=== PATIENT | female | born 1970 | race Caucasian/White ===

== ENCOUNTER → 2018-05-29 16:36 | Outpatient (CLI) | payer SELFPAY | LOC: MTRAD 16:37 | PROVIDERS: Family Provider Family Medicine; PCP Family Medicine; Visit Provider Family Medicine | DX: M54.16 Radiculopathy, lumbar region (principal) | CPT/HCPCS: 72110 ==

== ENCOUNTER → 2019-06-18 12:30 | Outpatient (CLI) | payer BC, SELFPAY ==
[2018-04-07 13:06] VITALS: BMI 37.0
[2019-06-18 14:39] LABS: Hemoglobin A1c 4.9 % (4.2-6.3)
[2019-06-18 14:59] LABS: Anion Gap 5 (5-15); BUN 18 mg/dL (7-18); BUN/Creat Ratio 24.4 RATIO (10-20); Calcium,Total 8.7 mg/dL (8.5-10.1); Chloride 106 mmol/L (98-107); Creatinine, Serum 0.74 mg/dL (0.55-1.02); EST Glomerular Filtration Rate 89 mL/min (>60); Est Glom Filt Rate - Afr Amer 108 mL/min (>60); Glucose 69 mg/dL (74-106); Potassium 3.8 mmol/L (3.5-5.1); Sodium Level 140 mmol/L (136-145)
== END ==
PROVIDERS: Family Provider Family Medicine; PCP Family Medicine; Referring Provider Family Medicine; Visit Provider Family Medicine
DX: Z00.00 Encounter for general adult medical examination without abnormal findings (principal); E16.2 Hypoglycemia, unspecified
CPT/HCPCS: 36415; 80048; 83036

== ENCOUNTER → 2019-07-08 16:40 | Outpatient (CLI) | payer BC, SELFPAY ==
[2019-07-08 14:20] VITALS: BMI 37.0
[2019-07-15 12:51] LABS: HPV APTIMA, High Risk Negative (Negative)
== END ==
PROVIDERS: Family Provider Family Medicine; PCP Family Medicine; Referring Provider Nurse Practitioner Women's Health; Visit Provider Nurse Practitioner Women's Health
DX: Z12.4 Encounter for screening for malignant neoplasm of cervix (principal)
CPT/HCPCS: 87624; 88175; G0145

== ENCOUNTER → 2019-07-09 14:22 | Outpatient (CLI) | payer BC, SELFPAY ==
[2019-07-08 14:20] VITALS: BMI 37.0
--- NOTE | 2019-07-09 14:30 | RAD_ITS ---
STUDY: X-RAY - RIGHT HIP REASON FOR EXAM: Female, 48 years old. Pain. TECHNIQUE: 2 views of the hip. COMPARISON: None. FINDINGS: Normal femoral head, neck, intertrochanteric region and visualized proximal femur. Normal acetabulum. Normal hip joint. Normal visualized superior and inferior pubic rami and ischial tuberosities. Normal soft tissues. RAD/HIP, UNI W/ Pelvis 2-3 Views IMPRESSION: Normal x-ray examination of the right hip. Electronically Signed: Geoff Brown DO at 18:21 EDT Tel [phone], Service support ,
== END ==
LOC: MTRAD 14:23
PROVIDERS: Family Provider Family Medicine; PCP Family Medicine; Referring Provider Family Medicine; Visit Provider Family Medicine
DX: M25.551 Pain in right hip (principal)
CPT/HCPCS: 73502

== ENCOUNTER → 2019-08-11 12:43 | Outpatient (CLI) | payer BC, SELFPAY ==
[2019-07-08 14:20] VITALS: BMI 37.0
--- NOTE | 2019-08-11 12:47 | BI_ITS ---
MAMMOGRAPHY - BILATERAL SCREENING REASON FOR EXAM: Female, 48 years old. Routine annual screening examination. PERTINENT HISTORY: Non-contributory. TECHNIQUE: Digital bilateral breast jerry (3D mammographic acquisition) in the CC and MLO projections. 2-D mediolateral oblique (MLO) and craniocaudad (CC) views of both breasts were obtained. CAD: Full Field Digital Mammography with Computer Added Detection was performed. COMPARISON: Comparison is made with prior study dated August 24, 2016 and August 19, 2015. FINDINGS: Breast Composition: The breasts are heterogeneously dense, which may obscure small masses. There are no dominant masses or suspicious calcifications. No other significant abnormalities are identified. There has been no significant change since the prior study. BI/SCREEN MAMM (CAD) W/JERRY BILAT IMPRESSION: Stable bilateral screening mammogram. Yearly follow-up mammogram recommended. (A) ASSESSMENT CATEGORY: BIRADS Category 1: Negative. A letter regarding these results will be sent to the patient by the facility within 30 days. Approximately 10% of breast cancers are not detected by mammography. A normal mammogram should not delay biopsy of a clinically suspicious abnormality. [id number] Electronically Signed: Cas Santos, at 15:25 EDT , Service support ,
== END ==
PROVIDERS: Family Provider Family Medicine; PCP Family Medicine; Referring Provider Nurse Practitioner Women's Health; Visit Provider Nurse Practitioner Women's Health
DX: Z12.31 Encounter for screening mammogram for malignant neoplasm of breast (principal)
CPT/HCPCS: 77063; 77067

== ENCOUNTER → 2019-10-02 11:49 | Outpatient (CLI) | payer BC, SELFPAY ==
[2019-07-08 14:20] VITALS: BMI 37.0
[2019-10-02 15:46] LABS: Insulin 11.9 mU/L (2.6-37.6)
[2019-10-02 15:52] LABS: T4 Free Direct 1.02 ng/dL (0.76-1.46); Thyroid Stim Hormone (TSH) 0.94 uIU/mL (0.358-3.74)
== END ==
LOC: BFHLAB 11:50
PROVIDERS: Family Provider Family Medicine; PCP Family Medicine; Visit Provider Family Medicine
DX: E16.2 Hypoglycemia, unspecified (principal)
CPT/HCPCS: 36415; 82533; 83525; 84439; 84443

== ENCOUNTER → 2020-03-01 13:10 | Outpatient (CLI) | payer BC, SELFPAY ==
[2019-07-08 14:20] VITALS: BMI 37.0
[2020-03-01 14:53] LABS: Cholesterol 184 mg/dL (200); Glucose 82 mg/dL (74-106); High Density Lipoprotein 60 mg/dL; Triglycerides 41 mg/dL; Very Low Density Lipoprotein 8 mg/dL (5-40)
== END ==
PROVIDERS: PCP Family Medicine; Visit Provider Family Medicine
DX: Z00.00 Encounter for general adult medical examination without abnormal findings (principal)
CPT/HCPCS: 36415; 80061; 82947

== ENCOUNTER → 2020-09-26 15:28 | Outpatient (CLI) | payer BC, SELFPAY ==
[2020-09-21 13:14] VITALS: BMI 37.3
[2020-09-26 17:25] LABS: Anion Gap 5 (5-15); BUN 20 mg/dL (7-18); BUN/Creat Ratio 25.8 RATIO (10-20); Calcium,Total 8.7 mg/dL (8.5-10.1); Chloride 108 mmol/L (98-107); Creatinine, Serum 0.77 mg/dL (0.55-1.02); EST Glomerular Filtration Rate 84 mL/min (>60); Est Glom Filt Rate - Afr Amer 102 mL/min (>60); Glucose 92 mg/dL (74-106); Potassium 3.7 mmol/L (3.5-5.1); Sodium Level 139 mmol/L (136-145)
== END ==
PROVIDERS: PCP Family Medicine; Visit Provider Family Medicine
DX: I10 Essential (primary) hypertension (principal); Z01.83 Encounter for blood typing
CPT/HCPCS: 36415; 80048; 86900; 86901

== ENCOUNTER → 2020-12-19 14:59 | Outpatient (CLI) | payer BC, SELFPAY ==
[2020-09-21 13:14] VITALS: BMI 37.3
[2020-12-19 17:21] LABS: Absolute Lymphocyte Count 1.29 X10^3/uL (0.83-4.51); Absolute Neutrophil Count 3.9 X10^3/uL (2.0-7.7); Basophil# 0.02 X10^3/uL; Basophil% 0.3 % (0-1); Eosinophil# 0.13 X10^3/uL; Eosinophils% 2.2 % (0-5); Hematocrit 38.7 % (37-47); Hemoglobin 12.1 g/dL (12.0-15.0); Lymphocyte # 1.29 X10^3/ul (4.0); Lymphocyte % 22.2 % (19-41); Mean Corp Hgb Conc 31.3 g/dL (32-36); Mean Corpuscular Hgb 26.7 pg (27.0-32.0); Mean Corpuscular Volume 85.4 fL (81-99); Mean Platelet Vol. 10.8 fl (6.2-12.0); Monocyte% 8.6 % (0-10); NRBC Flagged by Analyzer 0 % (0-5); Neutrophil # 3.85 X10^3/uL (2.7-7.7); Neutrophil % 66.4 % (47-70); Platelet Count 338 K/mm3 (150-450); RBC Distribution Width CV 16.2 % (11.6-14.6); RBC Distribution Width SD 50.7 fl (35.1-43.9); Red Blood Count 4.53 M/mm3 (4.2-5.4); White Blood Count 5.8 K/mm3 (4.4-11.0)
[2020-12-19 17:28] LABS: Hemoglobin A1c 5.3 % (3.8-5.6)
[2020-12-19 17:33] LABS: Thyroid Stim Hormone (TSH) 1.23 uIU/mL (0.358-3.74)
[2020-12-19 17:41] LABS: Vitamin B12 857 pg/mL (211-911); Vitamin D,25 Hydroxy 16.6 ng/mL
== END ==
PROVIDERS: PCP Family Medicine; Visit Provider Family Medicine
DX: R53.83 Other fatigue (principal); R73.03 Prediabetes
CPT/HCPCS: 36415; 82306; 82607; 83036; 84443; 85025

== ENCOUNTER → 2020-12-30 17:02 | Outpatient (CLI) | payer OTHER, SELFPAY ==
[2020-12-30 16:43] VITALS: BMI 38.3
--- NOTE | 2020-12-30 17:03 | RAD_ITS ---
STUDY: X-RAY - RIGHT KNEE REASON FOR EXAM: Female, 50 years old. pt fell today, pain TECHNIQUE: 2 view(s) of the knee. COMPARISON: None. FINDINGS: Normal visualized distal femur. Normal visualized proximal tibia and fibula. Normal proximal tibiofibular articulation. There is no demonstrated fracture. Normal medial femorotibial compartment. Normal lateral femorotibial compartment. Normal patellofemoral articulation. There is no demonstrated joint effusion. The soft tissue structures are unremarkable. RAD/Knee 1 or 2 Views IMPRESSION: Normal x-ray examination of the knee. Electronically Signed: Baldev Osuna MD at 18:08 EDT , Service support ,
--- NOTE | 2020-12-30 17:03 | RAD_ITS ---
STUDY: X-RAY - RIGHT ELBOW REASON FOR EXAM: Female, 50 years old. pt fell today, pain TECHNIQUE: 3 view(s) of the elbow. COMPARISON: None. FINDINGS: Normal visualized humerus, radius and ulna. Normal radiocapitellar and ulnotrochlear articulations. The soft tissue structures are unremarkable. There is no demonstrated fracture. RAD/Elbow min 3 Views IMPRESSION: Normal x-ray examination of the elbow. Electronically Signed: Baldev Osuna MD at 18:02 EDT , Service support ,
== END ==
PROVIDERS: PCP Family Medicine; Referring Provider Physician Assistant Medical; Visit Provider Physician Assistant Medical
DX: M25.521 Pain in right elbow (principal); W19.XXXA Unspecified fall, initial encounter
CPT/HCPCS: 73080; 73560

== ENCOUNTER → 2021-02-02 15:07 | Outpatient (CLI) | payer BC, SELFPAY ==
[2019-07-08 14:20] VITALS: BMI 37.0
[2020-12-30 16:43] VITALS: BMI 38.3
--- NOTE | 2021-02-02 15:09 | BI_ITS ---
MAMMOGRAPHY - BILATERAL SCREENING REASON FOR EXAM: Female, 50 years old. Routine annual screening examination. PERTINENT HISTORY: Non-contributory. TECHNIQUE: Digital bilateral breast jerry (3D mammographic acquisition) in the CC and MLO projections. 2-D mediolateral oblique (MLO) and craniocaudad (CC) views of both breasts were obtained. CAD: Full Field Digital Mammography with Computer Added Detection was performed. COMPARISON: Comparison is made with prior study dated 08/11/2019 and 08/24/2016. FINDINGS: Breast Composition: The breasts are heterogeneously dense, which may obscure small masses. There are no dominant masses or suspicious calcifications. No other significant abnormalities are identified. There has been no significant change since the prior study. BI/SCRN MAMM (CAD)W/JERRY BILAT IMPRESSION: Stable bilateral screening mammogram. Yearly follow-up mammogram recommended. (A) ASSESSMENT CATEGORY: BIRADS Category 1: Negative. A letter regarding these results will be sent to the patient by the facility within 30 days. Approximately 10% of breast cancers are not detected by mammography. A normal mammogram should not delay biopsy of a clinically suspicious abnormality. [id number] Electronically Signed: Cas Santos MD at 15:52 EDT , Service support ,
== END ==
PROVIDERS: PCP Family Medicine; Referring Provider Nurse Practitioner Women's Health; Visit Provider Nurse Practitioner Women's Health
DX: Z12.31 Encounter for screening mammogram for malignant neoplasm of breast (principal)
CPT/HCPCS: 77063; 77067

== ENCOUNTER 2021-11-30 10:29 | Outpatient (CLI) | payer MEDICAID, SELFPAY ==
[2021-11-30 12:14] LABS: Absolute Lymphocyte Count 1.44 X10^3/uL (0.83-4.51); Absolute Neutrophil Count 3.6 X10^3/uL (2.0-7.7); Basophil# 0.02 X10^3/uL; Basophil% 0.4 % (0-1); Eosinophil# 0.14 X10^3/uL; Eosinophils% 2.5 % (0-5); Hematocrit 40.3 % (37-47); Hemoglobin 12.5 g/dL (12.0-15.0); Lymphocyte # 1.44 X10^3/ul (0.83-4.51); Lymphocyte % 25.8 % (19-41); Mean Corpuscular Hgb 26.5 pg (27.0-32.0); Mean Corpuscular Volume 85.4 fL (81-99); Monocyte# 0.33 X10^3/uL; Monocyte% 5.9 % (0-10); NRBC Flagged by Analyzer 0 % (0-5); Neutrophil # 3.63 X10^3/uL (2.7-7.7); Platelet Count 303 K/mm3 (150-450); RBC Distribution Width CV 15.8 % (11.6-14.6); RBC Distribution Width SD 49.1 fl (35.1-43.9); Red Blood Count 4.72 M/mm3 (4.2-5.4); White Blood Count 5.6 K/mm3 (4.4-11.0)
[2021-11-30 12:30] LABS: Vitamin D,25 Hydroxy 37.6 ng/mL
[2021-11-30 12:44] LABS: ALB/GLOB Ratio 0.8 RATIO (0.9-2.4); AST(SGOT) 19 U/L (15-37); Alanine Aminotransfer ALT/SGPT 21 U/L (13-56); Albumin, Serum 3.7 g/dL (3.2-5.0); Alkaline Phosphatase 75 U/L (45-117); Anion Gap 5 (5-15); BUN 22 mg/dL (7-18); BUN/Creat Ratio 29.5 RATIO (10-20); Calcium,Total 8.8 mg/dL (8.5-10.1); Chloride 106 mmol/L (98-107); Cholesterol 173 mg/dL (200); Creatinine, Serum 0.75 mg/dL (0.55-1.02); EST Glomerular Filtration Rate 87 mL/min (>60); Est Glom Filt Rate - Afr Amer 105 mL/min (>60); Globulin 4.5 g/dL (2.2-4.2); Glucose 83 mg/dL (74-106); High Density Lipoprotein 65 mg/dL; Potassium 3.7 mmol/L (3.5-5.1); Protein, Total 8.2 g/dL (6.4-8.2); Sodium Level 136 mmol/L (136-145); Thyroid Stim Hormone (TSH) 0.84 uIU/mL (0.358-3.74); Triglycerides 37 mg/dL; Very Low Density Lipoprotein 7 mg/dL (5-40)
[2021-11-30 13:14] LABS: Hemoglobin A1c 5.3 % (3.8-5.6)
== END 2021-11-30 23:59 | disposition home or self-care (01) ==
LOC: MTLAB 10:33
PROVIDERS: PCP Family Medicine; Referring Provider Family Medicine; Visit Provider Family Medicine
DX: R53.83 Other fatigue (principal); E16.2 Hypoglycemia, unspecified; E55.9 Vitamin D deficiency, unspecified
CPT/HCPCS: 36415; 80053; 80061; 82306; 82533; 83036; 84443; 85025

== ENCOUNTER → 2022-02-01 | Outpatient (CLI) | payer MEDICAID, SELFPAY ==
[2022-02-01 15:00] LABS: Estradiol 18.3 pg/mL; Follicle Stimulating Hormone 82.7 mIU/mL
== END | disposition home or self-care (01) ==
LOC: PAVLAB 14:21
PROVIDERS: PCP Family Medicine; Referring Provider Nurse Practitioner Women's Health; Visit Provider Nurse Practitioner Women's Health
DX: N92.6 Irregular menstruation, unspecified (principal)
CPT/HCPCS: 36415; 82670; 83001

== ENCOUNTER → 2022-02-05 | Outpatient (CLI) | payer MEDICAID, SELFPAY ==
--- NOTE | 2022-02-05 14:10 | BI_ITS ---
MAMMOGRAPHY - BILATERAL SCREENING 3-D TOMOSYNTHESIS REASON FOR EXAM: Female, 51 years old. screening for breast cancer PERTINENT HISTORY: No significant family history. TECHNIQUE: 2-D mammograms and 3-D Tomosynthesis of the breast (s) were performed. CAD was performed. COMPARISON: 02/02/2021 FINDINGS: The breast composition is heterogeneously dense that can obscure small breast masses. Scattered benign calcifications are seen. No dense spiculated masses or suspicious microcalcifications are identified. No architectural distortion is identified. There is no skin thickening or retraction. There has been no significant change since the prior study. BI/SCRN MAMM (CAD)W/JERRY BILAT IMPRESSION: No mammographic signs of malignancy. Routine yearly mammograms recommended. ASSESSMENT CATEGORY: BIRADS Category 1: Negative. A letter regarding these results will be sent to the patient by the facility within 30 days. FOLLOW UP RECOMMENDATION: Yearly follow up mammogram recommended. (A) Approximately 10% of breast cancers are not detected by mammography. A normal mammogram should not delay biopsy of a clinically suspicious abnormality. Electronically Signed: Basilio Durbin MD at 15:20 EDT ,
== END | disposition home or self-care (01) ==
LOC: OPBI 14:10
PROVIDERS: PCP Family Medicine; Visit Provider Nurse Practitioner Women's Health
DX: Z12.31 Encounter for screening mammogram for malignant neoplasm of breast (principal)
CPT/HCPCS: 77063; 77067

== ENCOUNTER → 2022-05-22 | Outpatient (CLI) | payer MEDICAID, SELFPAY ==
[2022-05-22 18:12] LABS: Absolute Lymphocyte Count 1.51 X10^3/uL (0.83-4.51); Absolute Neutrophil Count 4.4 X10^3/uL (2.0-7.7); Basophil# 0.03 X10^3/uL; Basophil% 0.5 % (0-1); Eosinophil# 0.16 X10^3/uL; Eosinophils% 2.4 % (0-5); Hematocrit 39.2 % (37-47); Hemoglobin 12.6 g/dL (12.0-15.0); Lymphocyte # 1.51 X10^3/ul (0.83-4.51); Lymphocyte % 22.9 % (19-41); Mean Corp Hgb Conc 32.1 g/dL (32-36); Mean Corpuscular Hgb 25.9 pg (27.0-32.0); Mean Corpuscular Volume 80.5 fL (81-99); Mean Platelet Vol. 10.9 fl (6.2-12.0); Monocyte# 0.44 X10^3/uL; Monocyte% 6.7 % (0-10); NRBC Flagged by Analyzer 0 % (0-5); Neutrophil # 4.44 X10^3/uL (2.7-7.7); Neutrophil % 67.2 % (47-70); Platelet Count 312 K/mm3 (150-450); RBC Distribution Width CV 17.1 % (11.6-14.6); RBC Distribution Width SD 50.2 fl (35.1-43.9); Red Blood Count 4.87 M/mm3 (4.2-5.4); White Blood Count 6.6 K/mm3 (4.4-11.0)
[2022-05-22 18:54] LABS: ALB/GLOB Ratio 0.8 RATIO (0.9-2.4); AST(SGOT) 22 U/L (15-37); Alanine Aminotransfer ALT/SGPT 24 U/L (13-56); Albumin, Serum 3.7 g/dL (3.2-5.0); Alkaline Phosphatase 87 U/L (45-117); Anion Gap 8 (5-15); BUN 19 mg/dL (7-18); BUN/Creat Ratio 23.5 RATIO (10-20); Chloride 105 mmol/L (98-107); Creatinine, Serum 0.81 mg/dL (0.55-1.02); EST Glomerular Filtration Rate 79 mL/min (>60); Est Glom Filt Rate - Afr Amer 96 mL/min (>60); Globulin 4.6 g/dL (2.2-4.2); Glucose 90 mg/dL (74-106); Protein, Total 8.3 g/dL (6.4-8.2); Sodium Level 137 mmol/L (136-145); Thyroid Stim Hormone (TSH) 0.97 uIU/mL (0.358-3.74)
[2022-05-22 18:58] LABS: Vitamin D,25 Hydroxy 41.8 ng/mL
== END | disposition home or self-care (01) ==
LOC: MTLAB 16:43
PROVIDERS: PCP Family Medicine; Referring Provider Family Medicine; Visit Provider Family Medicine
DX: R53.83 Other fatigue (principal); R60.9 Edema, unspecified; E55.9 Vitamin D deficiency, unspecified
CPT/HCPCS: 36415; 80053; 82306; 84443; 85025

== ENCOUNTER → 2022-10-02 | Outpatient (CLI) | payer MEDICAID, SELFPAY | END | disposition home or self-care (01) | LOC: LABSPEC 10:57 | PROVIDERS: PCP Family Medicine; Visit Provider Family Medicine | DX: J06.9 Acute upper respiratory infection, unspecified (principal) | CPT/HCPCS: 87426 ==

== ENCOUNTER → 2023-01-01 | Outpatient (CLI) | payer MEDICAID, SELFPAY ==
[2023-01-01 18:11] LABS: AST(SGOT) 22 U/L (15-37); Alanine Aminotransfer ALT/SGPT 30 U/L (13-56); Albumin, Serum 4.1 g/dL (3.2-5.0); Alkaline Phosphatase 77 U/L (45-117); Anion Gap 7 (5-15); BUN 17 mg/dL (7-18); BUN/Creat Ratio 22.2 RATIO (10-20); Calcium,Total 9.3 mg/dL (8.5-10.1); Chloride 108 mmol/L (98-107); Cholesterol 160 mg/dL (200); Creatinine, Serum 0.76 mg/dL (0.55-1.02); EST Glomerular Filtration Rate 84 mL/min (>60); Est Glom Filt Rate - Afr Amer 102 mL/min (>60); Globulin 4.2 g/dL (2.2-4.2); Glucose 97 mg/dL (74-106); High Density Lipoprotein 79 mg/dL; Potassium 3.3 mmol/L (3.5-5.1); Protein, Total 8.3 g/dL (6.4-8.2); Sodium Level 141 mmol/L (136-145); Triglycerides 65 mg/dL; Very Low Density Lipoprotein 13 mg/dL (5-40)
== END | disposition home or self-care (01) ==
LOC: BFHLAB 14:45
PROVIDERS: PCP Family Medicine; Referring Provider Family Medicine; Visit Provider Family Medicine
DX: R17 Unspecified jaundice (principal); E78.5 Hyperlipidemia, unspecified
CPT/HCPCS: 36415; 80053; 80061

== ENCOUNTER → 2023-05-14 | Outpatient (CLI) | payer MEDICAID, SELFPAY | END | disposition home or self-care (01) | PROVIDERS: PCP Family Medicine; Referring Provider Family Medicine; Visit Provider Family Medicine | DX: Z20.7 Contact with and (suspected) exposure to pediculosis, acariasis and other infestations (principal); R21 Rash and other nonspecific skin eruption ==

== ENCOUNTER → 2023-05-16 | Outpatient (CLI) | payer MEDICAID, SELFPAY | END | disposition home or self-care (01) | PROVIDERS: PCP Family Medicine; Referring Provider Family Medicine; Visit Provider Family Medicine | DX: Z20.7 Contact with and (suspected) exposure to pediculosis, acariasis and other infestations (principal); R21 Rash and other nonspecific skin eruption ==

== ENCOUNTER → 2023-07-26 | Outpatient (CLI) | payer MEDICAID, SELFPAY ==
--- NOTE | 2023-07-26 16:04 | RAD_ITS ---
HISTORY: NECK PAIN. TECHNIQUE: XR Spine Cervical 4 or 5 Views. COMPARISON: 06/24/2015. FINDINGS: VERTEBRAE: Vertebral body heights maintained. Chronic C7 spinous process fracture. ALIGNMENT: 2 mm anterolisthesis of C7-T1. Reversal of the cervical lordosis. INTERVERTEBRAL DISCS: Progression of degenerative endplate changes with intervertebral disc space narrowing and osteophytes of C3-4, C4-5, C5-6, and C6-7. Foraminal narrowing multiple levels. SOFT TISSUES: No significant prevertebral soft tissue swelling. RAD/Cerv Spine 4 or 5 Views IMPRESSION: No acute fracture or dislocation identified in the cervical spine. Progression multilevel degenerative disc disease with mild degenerative anterolisthesis of C7-T1. Old C7 spinous process fracture. Electronically Signed: Elle Bhakta MD at 13:04 EDT ,
--- NOTE | 2023-07-26 16:04 | RAD_ITS ---
HISTORY: SHOULDER PAIN. TECHNIQUE: XR Shoulder Min 2 Views. COMPARISON: None. FINDINGS: BONES : No acute fracture identified. Mineralization unremarkable. JOINTS: No dislocation. Mild acromioclavicular degenerative change with small subacromial spur or ossicle. SOFT TISSUES: Right lung apex clear. RAD/Shoulder min 2 Views IMPRESSION: No acute fracture or dislocation identified in the right shoulder. Electronically Signed: Elle Bhakta MD at 13:03 EDT ,
== END | disposition home or self-care (01) ==
PROVIDERS: PCP Family Medicine; Referring Provider Nurse Practitioner Family; Visit Provider Nurse Practitioner Family
DX: M54.2 Cervicalgia (principal); M25.511 Pain in right shoulder
CPT/HCPCS: 72050; 73030

== ENCOUNTER → 2023-08-09 | Outpatient (CLI) | payer OTHER, MEDICAID, SELFPAY ==
--- NOTE | 2023-08-09 14:17 | BI_ITS ---
MAMMOGRAPHY - BILATERAL SCREENING REASON FOR EXAM: Female, 52 years old. Routine annual screening examination. PERTINENT HISTORY: Non-contributory. TECHNIQUE: Digital bilateral breast jerry (3D mammographic acquisition) in the CC and MLO projections. 2-D mediolateral oblique (MLO) and craniocaudad (CC) views of both breasts were obtained. CAD: Full Field Digital Mammography with Computer Added Detection was performed. COMPARISON: Comparison is made with prior examination February 05, 2022 and February 02, 2021. FINDINGS: Breast Composition: There are scattered areas of fibroglandular density. There are no dominant masses or suspicious calcifications. No other significant abnormalities are identified. There has been no significant change since the prior study. BI/SCRN MAMM (CAD)W/JERRY BILAT IMPRESSION: Stable bilateral screening mammogram. Yearly follow-up mammogram recommended. (A) ASSESSMENT CATEGORY: BIRADS Category 2: Benign. A letter regarding these results will be sent to the patient by the facility within 30 days. Approximately 10% of breast cancers are not detected by mammography. A normal mammogram should not delay biopsy of a clinically suspicious abnormality. [id number] Electronically Signed: Cas Santos MD at 15:17 EDT ,
== END | disposition home or self-care (01) ==
LOC: OPBI 14:15
PROVIDERS: PCP Family Medicine; Referring Provider Nurse Practitioner Family; Visit Provider Nurse Practitioner Family
DX: Z12.31 Encounter for screening mammogram for malignant neoplasm of breast (principal)
CPT/HCPCS: 77063; 77067

== ENCOUNTER → 2024-04-06 | Outpatient (CLI) | payer OTHER, SELFPAY ==
[2024-04-06 18:08] LABS: Absolute Lymphocyte Count 1.29 X10^3/uL (0.83-4.51); Absolute Neutrophil Count 1.6 X10^3/uL (2.0-7.7); Basophil# 0.02 X10^3/uL; Basophil% 0.5 % (0-1); Eosinophil# 0.29 X10^3/uL; Eosinophils% 7.8 % (0-5); Hematocrit 38.3 % (37-47); Hemoglobin 11.9 g/dL (12.0-15.0); Lymphocyte # 1.29 X10^3/ul (0.83-4.51); Lymphocyte % 34.9 % (19-41); Mean Corp Hgb Conc 31.1 g/dL (32-36); Mean Corpuscular Hgb 26.2 pg (27.0-32.0); Mean Corpuscular Volume 84.2 fL (81-99); Mean Platelet Vol. 10.7 fl (6.2-12.0); Monocyte# 0.47 X10^3/uL; Monocyte% 12.7 % (0-10); NRBC Flagged by Analyzer 0 % (0-5); Neutrophil # 1.63 X10^3/uL (2.7-7.7); Neutrophil % 44.1 % (47-70); Platelet Count 225 K/mm3 (150-450); RBC Distribution Width SD 49.7 fl (35.1-43.9); Red Blood Count 4.55 M/mm3 (4.2-5.4); White Blood Count 3.7 K/mm3 (4.4-11.0)
[2024-04-06 18:23] LABS: Hemoglobin A1c 5.3 % (3.8-5.6)
[2024-04-06 18:51] LABS: ALB/GLOB Ratio 0.9 RATIO (0.9-2.4); AST(SGOT) 25 U/L (15-37); Alanine Aminotransfer ALT/SGPT 25 U/L (13-56); Albumin, Serum 3.7 g/dL (3.2-5.0); Alkaline Phosphatase 76 U/L (45-117); Anion Gap 8 (5-15); BUN 24 mg/dL (7-18); Calcium,Total 9.1 mg/dL (8.5-10.1); Chloride 108 mmol/L (98-107); Cholesterol 174 mg/dL (200); Creatinine, Serum 0.69 mg/dL (0.55-1.02); EST Glomerular Filtration Rate 95 mL/min (>60); Est Glom Filt Rate - Afr Amer 115 mL/min (>60); Glucose 87 mg/dL (74-106); High Density Lipoprotein 76 mg/dL; Potassium 3.8 mmol/L (3.5-5.1); Protein, Total 7.7 g/dL (6.4-8.2); Sodium Level 139 mmol/L (136-145); Thyroid Stim Hormone (TSH) 0.61 uIU/mL (0.358-3.74); Triglycerides 58 mg/dL; Very Low Density Lipoprotein 12 mg/dL (5-40)
== END | disposition home or self-care (01) ==
LOC: BFHLAB 14:12
PROVIDERS: PCP Family Medicine; Referring Provider Family Medicine; Visit Provider Family Medicine
DX: Z00.00 Encounter for general adult medical examination without abnormal findings (principal); I10 Essential (primary) hypertension; R73.01 Impaired fasting glucose
CPT/HCPCS: 36415; 80053; 80061; 83036; 84443; 85025

== ENCOUNTER → 2025-04-08 | Outpatient (CLI) | payer OTHER, SELFPAY ==
[2025-04-08 17:45] LABS: Absolute Lymphocyte Count 1.37 X10^3/uL (0.83-4.51); Absolute Neutrophil Count 3.1 X10^3/uL (2.0-7.7); Basophil# 0.03 X10^3/uL; Basophil% 0.6 % (0-1); Eosinophil# 0.24 X10^3/uL; Eosinophils% 4.6 % (0-5); Hematocrit 37.5 % (37-47); Hemoglobin 11.9 g/dL (12.0-15.0); Lymphocyte # 1.37 X10^3/ul (0.83-4.51); Lymphocyte % 26.4 % (19-41); Mean Corp Hgb Conc 31.7 g/dL (32-36); Mean Corpuscular Hgb 26.1 pg (27.0-32.0); Mean Corpuscular Volume 82.2 fL (81-99); Mean Platelet Vol. 10.9 fl (6.2-12.0); Monocyte# 0.41 X10^3/uL; Monocyte% 7.9 % (0-10); NRBC Flagged by Analyzer 0 % (0-5); Neutrophil # 3.13 X10^3/uL (2.7-7.7); Neutrophil % 60.3 % (47-70); Platelet Count 284 K/mm3 (150-450); RBC Distribution Width CV 16.3 % (11.6-14.6); RBC Distribution Width SD 49.1 fl (35.1-43.9); Red Blood Count 4.56 M/mm3 (4.2-5.4); White Blood Count 5.2 K/mm3 (4.4-11.0)
[2025-04-08 18:37] LABS: ALB/GLOB Ratio 1.3 RATIO (0.9-2.4); AST(SGOT) 23 U/L (<=31); Alanine Aminotransfer ALT/SGPT 14 U/L (<=34); Albumin, Serum 4.2 g/dL (3.5-5.0); Alkaline Phosphatase 78 U/L (35-104); Anion Gap 12 (5-15); BUN 24 mg/dL (4-19); BUN/Creat Ratio 27.3 RATIO (10-20); Calcium,Total 9.4 mg/dL (7.6-11.0); Carbon Dioxide 21.7 mmol/L (21.0-32.0); Chloride 106 mmol/L (98-108); Cholesterol 185 mg/dL (<=200); Creatinine, Serum 0.87 mg/dL (0.70-1.20); EST Glomerular Filtration Rate 79 (>60); Globulin 3.1 g/dL (2.2-4.2); Glucose 102 mg/dL (70-99); High Density Lipoprotein 79 mg/dL; Low Density Lipoprotein Calc. 91 mg/dL; Potassium 4.4 mmol/L (3.3-5.1); Protein, Total 7.3 g/dL (5.9-8.4); Sodium Level 140 mmol/L (133-145); Thyroid Stim Hormone (TSH) 0.549 uIU/mL (0.300-4.200); Total Bilirubin 0.36 mg/dL (0.00-1.30); Triglycerides 74 mg/dL; Very Low Density Lipoprotein 15 mg/dL (5-40); Vitamin D,25 Hydroxy 43.2 ng/mL (30-100); cholesterol:hdl ratio screen 2.35
[2025-04-09 14:04] LABS: Hemoglobin A1c 5.7 % (<=5.6)
== END | disposition home or self-care (01) ==
LOC: BFHLAB 15:52
PROVIDERS: PCP Family Medicine; Visit Provider Family Medicine
DX: Z00.00 Encounter for general adult medical examination without abnormal findings (principal); E55.9 Vitamin D deficiency, unspecified; R73.01 Impaired fasting glucose
CPT/HCPCS: 36415; 80053; 80061; 82306; 83036; 84443; 85025

== ENCOUNTER → 2025-06-18 | Outpatient (CLI) | payer OTHER, SELFPAY ==
--- NOTE | 2025-06-18 15:55 | BI_ITS ---
EXAM: SCRN MAMM (CAD)W/JERRY BILAT DATE: 06/18/2025 CLINICAL HISTORY: F, Age 54 y/o , SCREENING TECHNIQUE: Procedure Code: [id number] Modality: MG Procedure: SCRN MAMM (CAD)W/JERRY BILAT COMPARISON: Prior exam(s) dated 08/09/2023 and 02/05/2022. FINDINGS: TISSUE DENSITY: There are scattered areas of fibroglandular density. Bilateral Breast Mammographic Findings: No significant masses, calcifications or other abnormalities are identified. Benign vascular calcifications are seen in both breast. BI/SCRN MAMM (CAD)W/JERRY BILAT IMPRESSION: Benign screening mammogram OVERALL FINAL ASSESSMENT BI-RADS 2: BENIGN RECOMMENDATION: Routine annual follow-up in 1 Year A letter with findings and recommendations will be mailed to the patient. Reading Location: [id number]
--- OUTSIDE RECORDS SUMMARY | 2025-06-18 20:49 | XMS RPT_ITS | CCD ---
Author Organization [facility] Care Team Providers Care Property Maintenance Technician Name Role Phone Dr. Donald Aguilar Primary Care Provider Dr. Donald Aguilar Referring Provider RYAN Cochran Attending Provider Perla ROQUE, JOHN Mirza Attending Provider Dr. Donald Aguilar Primary Care Provider [phone] Dr[address] Donald Aguilar Referring Provider RYAN Cochran Attending Provider RYAN Mcgovern Attending Provider [phone] Donald Aguilar DO Primary Care Provider Donald Aguilar DO A Primary Care Provider DONALD AGUILAR A Primary Care Unavailable THERESA MORAN Referring Unavailable DONALD AGUILAR A Primary Care Unavailable MARCELA ARAGON Referring Unavailable DONALD AGUILAR A Primary Care Unavailable DONALD AGUILAR A Primary Care Unavailable Dr. Donald Aguilar DO Primary Care Provider Dr. Donald Aguilar DO Attending Provider Donald Aguilar Attending Unavailable Donald Aguilar Primary Care Unavailable Donald Aguilar Attending Unavailable Donald Aguilar Referring Unavailable Donald Aguilar Primary Care Unavailable Allergies Allergy Classification Reported Allergen(s) Allergy Type Date of Onset Reaction(s) Facility (7 sources) DULoxetine Drug Allergy 2 [facility] (15 sources) Sulfonamides (Antibiotic); Translations: [SULFA (SULFONAMIDE ANTIBIOTICS)] Allergy to substance 4 Hives [facility] (1 source) DULoxetine Drug Allergy 3 [facility] Repository Medications Current Medications Medication Drug Class(es) Dates Sig (Normalized) Sig (Original) acetaminophen 325 mg oral capsule (7 sources) Start: 01-10-2022 take 1 capsule by mouth once as needed Acetaminophen (Tylenol) 325 mg capsule Active 325 mg PO ONCE as needed January 10, 2022 12:00am [id number] actuat albuterol 0.09 mg/actuat metered dose inhaler (15 sources) beta2-Adrenergic Agonist Start: 12-07-2024 take 2 puff(s) by inhalation every four hours as needed for wheezing albuterol HFA (PROVENTIL HFA, VENTOLIN HFA) 90 mcg/actuation inhaler Inhale 2 Puffs as instructed every 4 hours as needed for wheezing/shortness of breath. 12/07/2024 Active Start: 04-19-2015 End: 07-08-2019 take 1 puff(s) by inhalation every four hours as needed Albuterol Sulfate Discontinued 1 PUFF INHALATION EVERY 4 HOURS NEEDED April 19, 2015 1:33pm July 08, 2019 2:07pm Start: 04-19-2015 End: 07-08-2019 Albuterol Sulfate 1 INHALER inhaler Discontinued 1 NMA INHALATION EVERY 4 HOURS NEEDED as needed for Shortness Of Breath April 19, 2015 12:00am July 08, 2019 2:07pm Start: 04-19-2015 End: 07-08-2019 take 1 puff(s) by inhalation every four hours as needed Albuterol Sulfate Discontinued 1 PUFF INHALATION EVERY 4 HOURS NEEDED April 19, 2015 12:00am July 08, 2019 2:07pm ALBUTEROL SULFAT E (VENTOLIN HFA INHALATION) Inhale as instructed. Active ALBUTEROL SULFAT E (VENTOLIN HFA INHALATION) Inhale as instructed. 0 Active Comment on above: Inhale as instructed . albuterol-budesonide HFA (AIRSUPRA) 90-80 mcg/actuation inhaler (3 sources) Start: 12-16-2024 End: 01-15-2025 albuterol-budesonide HFA (AIRSUPRA) 90-80 mcg/actuation inhaler Indications: Acute cough Inhale 2 Puffs as instructed every 6 hours as needed for wheezing/shortness of breath. Do not take more than 12 inhalations in a 24 hour period. 1 Each 12/16/2024 01/15/2025 Active betamethasone 0.5 mg/ml / clotrimazole 10 mg/ml topical cream (14 sources) Azole Antifungal, Corticosteroid Start: 09-21-2020 End: 01-17-2022 Clotrimazole-Betametha sone 1-0.05 % cream Active 1 NMA TOPICAL TWICE A DAY 45 14 1 January 17, 2022 2:55pm Start: 09-21-2020 End: 01-17-2022 Clotrimazole-Betamethasone A ctive 1 APPLIC TOPICAL TWICE A DAY 45 14 January 17, 2022 2:55pm cholecalciferol 0.05 mg oral capsule (7 sources) Vitamin D Start: 01-10-2022 take 1 capsule by mouth once daily Cholecalciferol (Vitamin D3) 50 mcg (2,000 unit) capsule Active 50 ug PO DAILY January 10, 2022 12:00am cyclobenzaprine hydrochloride 5 mg oral tablet (9 sources) Muscle Relaxant Start: 09-23-2017 take 1 tablet by mouth twice daily Cyclobenzaprine 5 MG tablet Active 5 mg PO TWICE A DAY September 23, 2017 1:00am End: 07-20-2023 take 1 tablet by mouth every eight hours as needed cyclobenzaprine (FLEXERIL) 5 mg tablet Take 5 mg by mouth three times daily as needed. 0 07/20/2023 Discontinued Comment on above: Take 5 mg by mouth t hree times daily as needed. doxycycline hyclate 100 mg oral capsule (1 source) Tetracycline-class Drug Start : 09-03 take 1 capsule by mouth every twelve hours Doxycycline Hyclate 100 mg capsule Active 100 mg PO Q12H 14 0 September 03, 2023 1:00am famotidine 20 mg oral tablet (1 source) Histamine-2 Receptor Antagonist Start : 05-13 End: 05-23 take 1 tablet by mouth twice daily famotidine (PEPCID) 20 mg tablet Take 1 tablet by mouth twice daily for 10 days. 20 tablet 0 05/13/2023 05/23/2023 Active Comment on above: Take 1 tablet by craig twice daily for 10 days. 120 actuat fluticasone propionate 0.115 mg/actuat / salmeterol 0.021 mg/actuat metered dose inhaler (6 sources) Corticosteroid, beta2-Adrenergic Agonist Start : 02-12 take 1 puff(s) by inhalation twice daily ADVAIR HFA 115-21 mcg/actuation inhaler Inhale 1 Puff as instructed twice daily. 02/12/2023 Active Comment on above: Inhale 1 Puff as ins tructed twice daily. levocetirizine dihydrochloride 5 mg oral tablet (13 sources) Histamine-1 Receptor Antagonist Start : 09-23 take 1 tablet by mouth once daily Levocetirizine 5 MG tablet Active 5 mg PO DAILY September 23, 2017 1:00am Comment on above: Take 5 mg by mouth. melatonin 3 mg oral capsule (7 sources) Start : 09-21 take 1 capsule by mouth at bedtime as needed Melatonin 3 mg capsule Active 3 mg PO BEDTIME as needed September 21, 2020 1:00am methylPREDNISolone (1 source) Corticosteroid Start : 01-08 End: 01-14 methylPREDNISolone (MEDROL, PIRECE,) 4 mg Dose-Pack Follow dosing instructions, take with food. 21 tablet 01/08/2025 01/14/2025 Active norethindrone 0.35 mg oral tablet (20 sources) Start : 12-15 take 1 tablet by mouth once daily Norethindrone (Contraceptive) Active 0 .ROUTE .COMPLEX 84 December 15, 2021 7:30am Take 1 tablet by mouth once daily Start: 07-08-2019 End: 12-15-2021 take 1 tablet by mouth once daily Norethindrone (Contraceptive) (Denise) 0.35 mg tablet Discontinued 0.35 mg PO daily 84 July 04, 2021 7:26am December 15, 2021 7:30am Temple 0-Qsg-Ahf-Fish Oil (Fish Oil) 60-90-500 mg capsule (7 sources) Start: 01-10-2022 take 1 capsule by mouth once daily Temple 0-Ohl-Gae-Fish Oil (Fish Oil) 60-90-500 mg capsule Active 1 CAP PO DAILY January 10, 2022 11:08am Start: 01-10-2022 Temple 3-Dha-Ep a-Fish Oil (Fish Oil) 60-90-500 mg capsule Active 1 NMA PO DAILY January 10, 2022 12:00am Start: 01-10-2022 take 1 capsule by mo [facility] once daily Temple 1-Xly-Fkl-Fish Oil (Fish Oil) 60-90-500 mg capsule Active 1 CAP PO DAILY January 10, 2022 12:00am omeprazole 20 mg delayed release oral capsule (15 sources) Proton Pump Inhibitor Start: 01-01-2025 take 1 capsule by mouth once daily omeprazole (PRILOSEC) 20 mg capsule Take 1 capsule by mouth once daily. 01/01/2025 Active Start: 09-23-2017 Omeprazole 20 MG capsule,delayed release(DR/EC) Active 1 {tbl} PO DAILY September 23, 2017 1:00am Start: 09-23-2017 take 1 tablet by [facility] once daily Omeprazole Active 1 TABLET PO DAILY September 23, 2017 1:00am OMEPRAZOLE ORAL Take by mouth. Active OMEPRAZOLE ORAL Take by mouth. 0 Active Comment on above: Take by mouth. phentermine hydrochloride 37.5 mg oral tablet (5 sources) Sympathomimetic Amine Anorectic Start: 07-05-20 take 1 tablet by mouth once daily in the morning Phentermine HCl 37.5 mg tablet TAKE 1 TABLET BY MOUTH ONCE DAILY IN THE MORNING 07/05/2023 Active Comment on above: TAKE 1 TABLET BY [facility] ONCE DAILY IN THE MORNING predniSONE 10 mg oral tablet (1 source) Start: 07-20-20 End: 07-26-20 take 4 tablets by mouth once daily, then take 2 tablets by mouth once daily, then take 1 tablet by mouth once daily predniSONE (DELTASONE) 10 mg tablet Indications: Acute pain of right shoulder , DDD (degenerative disc disease), cervical Take 4 tablets by mouth once daily for 2 days, THEN 2 tablets once daily for 2 days, THEN 1 tablet once daily for 2 days. Take with food.. 14 tablet 0 07/20/2023 07/26/2023 Active Comment on above: Take 4 tablets by [facility] once daily for 2 days, THEN 2 tablets once daily for 2 days, THEN 1 tablet once daily for 2 days. Take with food.. verapamil hydrochloride 80 mg oral tablet (20 sources) Calcium Channel Josefina Start: 11-25-19 take 1 tablet by mouth every twelve hours verapamil 80 mg tablet Take 1 tablet by mouth every 12 hours. 11/25/2024 Active Start: 12-30-2020 take 1 tablet by craig th once daily Verapamil 80 mg tablet Active 80 mg PO DAILY December 30, 2020 12:00am Start: 09-23-2017 End: 12-30-2020 take 1 capsule by mouth once daily Verapamil 120 MG capsule,ext rel. pellets 24 hr Discontinued 120 mg PO DAILY September 23, 2017 1:00am December 30, 2020 4:45pm take 1 tablet by craig th once daily at bedtime verapamil SR (CALAN SR, ISOPTIN SR) 120 mg CR tablet Take 120 mg by mouth daily at bedtime. Active Comment on above: Take 120 mg by mouth daily at bedtime. Completed/Discontinued Medications Medication Drug Class(es) Dates Sig (Normalized) Sig (Original) acetaminophen 325 mg / oxyCODONE hydrochloride 7.5 mg oral tablet (14 sources) Opioid Agonist Start: 12-30-2020 End: 01-10-2022 Oxycodone-Acetamino phen 7.5-325 mg tablet Discontinued 1 {tbl} PO Q8H as needed for pain 0 December 30, 2020 12:00am January 10, 2022 11:08am Start: 12-30-2020 End: 01-10-2022 take 1 tablet by mouth every eight hours Oxycodone-Acetaminophen Discontinued 1 TABLET PO Q8H December 30, 2020 12:00am January 10, 2022 11:08am Start: 04-26-2015 End: 09-21-2020 Oxycodone-Acetaminophen 1 TA BLET tablet Discontinued 1 - 2 {tbl} PO 4 TIMES DAILY NEEDED as needed for Pain April 26, 2015 8:43am September 21, 2020 2:31pm Start: 04-26-2015 End: 09-21-2020 take 1 tablet by mouth four times daily as needed Oxycodone-Acetaminophen Discontinued 1 - 2 TABLET PO 4 TIMES DAILY NEEDED April 26, 2015 8:43am September 21, 2020 2:31pm Amitriptyline (2 sources) Tricyclic Antidepressant End: 07-20-2023 AMITRIPTYLINE HCL (AMITRIPTYLINE ORAL) Take by mouth. 0 07/20/2023 Discontinued AMITRIPTYLINE HC L (AMITRIPTYLINE ORAL) Take by mouth. 0 Active Comment on above: Take by mouth. ciclesonide 0.037 mg/actuat metered dose nasal spray (9 sources) Start: 04-19-2015 End: 07-08-2019 Ciclesonide 6.1 GM HFA aerosol inhaler Discontinued 6.1 g NS DAILY April 19, 2015 12:00am July 08, 2019 2:07pm End: 07-20-2023 ciclesonide (ZETONNA) 37 mcg /actuation HFAA Use in each nostril. 0 07/20/2023 Discontinued Comment on above: Use in each nostril. COMPOUNDED PRESCRIPTION (2 sources) Start: 04-05-2017 End: 07-20-2023 COMPOUNDED PRESCRIPTION Power Steps, full length original. 1 Device 0 04/05/2017 07/20/2023 Discontinued Start: 04-05-2017 COMPOUNDED PRE SCRIPTION Power Steps, full length original. 1 Device 0 04/05/2017 Active Comment on above: Power Steps, full le ngth original. Norgestimate-Ethinyl Estradiol (20 sources) Progestin, Estrogen Start: 07-06-2019 End: 07-08-2019 Norgestimate-Ethinyl Estradiol (Sprintec (28)) 0.25-35 mg-mcg tablet Discontinued 1 {tbl} PO daily 28 0 July 06, 2019 2:47pm July 08, 2019 2:20pm Start: 07-06-2019 End: 07-08-2019 take 1 tablet by mouth once daily Norgestimate-Ethinyl Estradiol (Sprintec (28)) 0.25-35 mg-mcg tablet Discontinued 1 TABLET PO daily July 06, 2019 2:47pm July 08, 2019 2:20pm Start: 04-13-2019 End: 07-06-2019 Norgestimate-Ethinyl Estradi ol (Sprintec (28)) 0.25-35 mg-mcg tablet Discontinued 1 {tbl} PO daily 84 0 April 13, 2019 11:23am July 06, 2019 2:47pm Start: 04-13-2019 End: 07-06-2019 take 1 tablet by mouth once daily Norgestimate-Ethinyl Estradiol (Sprintec (28)) 0.25-35 mg-mcg tablet Discontinued 1 TABLET PO daily 84 April 13, 2019 11:23am July 06, 2019 2:47pm Start: 04-07-2018 End: 04-13-2019 take 1 tablet by mouth once daily Norgestimate-Ethinyl Estradiol (Sprintec (28)) 0.25-35 mg-mcg tablet Discontinued 1 TABLET PO daily April 07, 2018 1:57pm April 13, 2019 11:24am Start: 04-07-2018 End: 04-13-2019 Norgestimate-Ethinyl Estradi ol (Sprintec (28)) 0.25-35 mg-mcg tablet Discontinued 1 {tbl} PO daily 10 10April 07, 2018 12:00am April 13, 2019 11:24am Start: 04-07-2018 End: 04-13-2019 take 1 tablet by mouth once daily Norgestimate-Ethinyl Estradiol (Sprintec (28)) 0.25-35 mg-mcg tablet Discontinued 1 TABLET PO daily April 07, 2018 12:00am April 13, 2019 11:24am fluconazole 150 mg oral tablet (7 sources) Azole Antifungal Start: 09-21-2020 End: 12-30-2020 Fluconazole 150 mg tablet Discontinued 150 mg PO .COMPLEX 2 0 September 21, 2020 1:00am December 30, 2020 4:47pm 150 mg PO take one po now and repeat in 3 days 120 actuat formoterol fumarate 0.005 mg/actuat / mometasone furoate 0.2 mg/actuat metered dose inhaler (9 sources) Corticosteroid, beta2-Adrenergic Agonist Start: 04-19-2015 End: 07-08-2019 Mometasone-Formoterol 8.8 GM HFA aerosol inhaler Discontinued 8.8 g IH DAILY April 19, 2015 12:00am July 08, 2019 2:08pm End: 07-20-2023 take 2 puff(s) by inhalation twice daily mometasone-formoterol (DULERA) 100-5 mcg/actuation inhaler Inhale 2 Puffs as instructed twice daily. 0 07/20/2023 Discontinued Comment on above: Inhale 2 Puffs as in structed twice daily. ibuprofen 200 mg oral capsule (7 sources) Nonsteroidal Anti-inflammatory Drug Start: 2019 End: 2021 take 1 capsule by mouth every six hours as needed Ibuprofen 200 mg capsule Discontinued 200 mg PO EVERY 6 HOURS as needed September 21, 2020 1:00am January 10, 2022 11:07am medroxyPROGESTERone acetate 5 mg oral tablet (14 sources) Progestin Start: 2017 End: 2017 take 1 tablet by mouth twice daily Medroxyprogesterone 5 mg tablet Discontinued 5 mg PO .COMPLEX 45 0 February 03, 2018 11:23am April 07, 2018 1:07pm 5 mg PO 1 tab tid until bleeding stops X 24 hours then 1 tab bid meloxicam (2 sources) Nonsteroidal Anti-inflammatory Drug End: 2022 MELOXICAM (MOBIC ORAL) Take by mouth. 0 07/20/2023 Discontinued MELOXICAM (MOBIC ORAL) Take by mouth. 0 Active Comment on above: Take by mouth. 24 hr metoprolol succinate 50 mg extended release oral tablet (2 sources) beta-Adrenergic Josefina End: 07-20-2023 take 1 tablet by mouth once daily, then take 1 tablet by mouth every twenty-four hours metoprolol succinate XL, long acting, (TOPROL XL) 50 mg 24 hr tablet Take 50 mg by mouth once daily. 0 07/20/2023 Discontinued Comment on above: Take 50 mg by mouth once daily. OXYCODONE HCL/ACETAMINOPHEN (PERCOCET ORAL) (2 sources) End: 07-20-2023 OXYCODONE HCL/ACETAMINOPHEN (PERCOCET ORAL) Take by mouth. 0 07/20/2023 Discontinued OXYCODONE HCL/AC ETAMINOPHEN (PERCOCET ORAL) Take by mouth. 0 Active Comment on above: Take by mouth. pravastatin sodium 20 mg oral tablet (2 sources) HMG-CoA Reductase Inhibitor Start: 04-08-20 End: 07-20-20 take 1 tablet by mouth once pravastatin (PRAVACHOL) 20 mg tablet Take 1 tablet by mouth every afternoon. 0 04/08/2023 07/20/2023 Discontinued Comment on above: Take 1 tablet by craig th every afternoon. tranexamic acid 650 mg oral tablet (2 sources) Antifibrinolytic Agent End: 07-20-20 Tranexamic Acid 650 mg tab Take by mouth. 0 07/20/2023 Discontinued Comment on above: Take by mouth. valACYclovir 500 mg oral tablet (18 sources) Herpesvirus Nucleoside Analog DNA Polymerase Inhibitor, Herpes Simplex Virus Nucleoside Analog DNA Polymerase Inhibitor, Herpes Zoster Virus Nucleoside Analog DNA Polymerase Inhibitor Start: 10-11-20 16 End: 07-20-20 23 take 1 tablet by mouth twice daily Valacyclovir (Valtrex) 500 mg tablet Discontinued 500 mg PO TWICE A DAY 60 12 April 10, 2018 11:59pm July 08, 2019 2:08pm Start: 10-11-2016 End: 07-20-2023 take 1 tablet by mouth once daily valACYclovir (VALTREX) 500 mg tablet Take 1 tablet by mouth once daily. 30 tablet 12 10/11/2016 07/20/2023 Discontinued Comment on above: Take 1 tablet by craig th twice daily. Take 1 tablet by craig th once daily. Problems Active Problems Problem Classification Problem Date Documented Date Episodic/Chronic Anxiety disorders (9 sources) Anxiety; Translations: [Generalized anxiety disorder] Chronic Menstrual disorders (9 sources) Irregular periods; Translations: [Irregular menstruation, unspecified] Chronic Other female genital disorders (6 sources) Abnormal uterine bleeding; Translations: [Abnormal uterine and vaginal bleeding, unspecified] Onset: 02-25-2017 02-25-2017 Chronic Other lower respiratory disease (2 sources) Cough; Translations: [Acute cough] 12-16-2024 Episodic Other non-traumatic joint disorders (1 source) Pain in right shoulder; Translations: [Pain in joint, shoulder region] 07-20-2023 Episodic Other screening for suspected conditions (not mental disorders or infectious disease) (1 source) Encounter for screening mammogram for malignant neoplasm of breast; Translations: [Encounter for screening mammogram for malignant neoplasm of breast] Onset: 06-11-2025 Episodic Other skin disorders (1 source) Eruption; Translations: [Rash and other nonspecific skin eruption] 05-13-2023 Episodic Residual codes; unclassified (7 sources) Past history of procedure; Translations: [Personal history of other medical treatment] 11-07-2018 Episodic Comment on above: 02/25/17 Spondylosis; intervertebral disc disorders; other back problems (1 source) Degeneration of cervical intervertebral disc; Translations: [Other cervical disc degeneration, unspecified cervical region] 07-20-2023 Chronic Spondylosis; intervertebral disc disorders; other back problems (4 sources) Acute back pain with sciatica; Translations: [Lumbago with sciatica, left side] 01-08-2025 Episodic Superficial injury; contusion (7 sources) Contusion of elbow; Translations: [Contusion of right elbow, initial encounter] 01-06-2021 Episodic Unclassified (7 sources) Contusion of right knee, initial encounter 01-06-2021 Unclassified (1 source) Acute cough; Translations: [Acute cough] Onset: 12-16-2024 Unclassified (1 source) Cellulitis and abscess of finger, unspecified 09-04-2023 Past or Other Problems Problem Classification Problem Date Documented Da te Episodic/Chronic Unclassified (5 sources) wrist surgery 05-04-2022 Results Test Name Value Interpretation Reference Range Facility Hemoglobin A1con 04-09-2025 HbA1c (Bld) [Mass fraction] 5.7 % Normal <=5.6 [facility] Comment on above: Order Comment: SANDIP Garduno ADD ON A1C FROM 04/08/25 [id number] Result Comment: Norm al < 5.7 % Prediabetic 5.7 - 6.4 % Diabetic >or= 6.5 % Please note range changes. Performed By: #### L 500.4100, L501.9985, L500.4050, L501.9520, L506.1001, L100.0100 #### [facility] [address] [place], [place], [id number] Hemoglobin A1c percentageOrd ered By: Donald Aguilar on 04-09-2025 HbA1c (Bld) [Mass fraction] 5.7 % <5.7 [facility] Comment on above: Normal < 5.7 % Predi abetic 5.7 - 6.4 % Diabetic >or= 6.5 % Please note range changes. Absolute lymphocyte countOrd ered By: Donald Aguilar on 04-08-2025 Lymphocytes Auto (Unsp spec) [#/Vol] 1.37 10*3/uL 0.83-4.51 [facility] Absolute neutrophil countOrd ered By: Donald Aguilar on 04-08-2025 Neutrophils (Bld) [#/Vol] 3.1 10*3/uL 2.0-7.7 [facility] Anion gap in Serum or Plasma Ordered By: Donald Aguilar on 04-08-2025 Anion gap [Moles/Vol] 12 mmol/L 5-15 [facility] Automated lymphocyte count a s percentage of total leukocytesOrdered By: Donald Aguilar on 04-08-2025 Lymphocytes/100 WBC Auto (Unsp spec) 26.4 % 19- [facility] BUN/creatinine ratioOrdered By: Donald WestLauren on 04-08-2025 Urea nitrogen/Creatinine [Mass ratio] 27.3 mg/mg High 10- [facility] Basophil percentageOrdered B y: Donald WestLauren on 04-08-2025 Basophils/100 WBC (Bld) 0.6 % 0-1 [facility] Bilirubin, totalOrdered By: Donald WestLauren on 04-08-2025 Bilirubin [Mass/Vol] 0.36 mg/dL 0.00-1.30 [facility] CBC W/Diff, Automatedon 03-15 Absolute Lymph 1.37 X10 3/uL Normal 0.83-4.51 [facility] Comment on above: Performed By: #### L 500.4100, L501.9985, L500.4050, L501.9520, L506.1001, L100.0100 #### [facility] [address] [place], [address] Absolute Neut 3.1 X10 3/uL Normal 2.0-7.7 [facility] Comment on above: Performed By: #### L 500.4100, [id number], L500.4050, L501.9520, L506.1001, L100.0100 #### [facility] [address] [place], [address] Basophils/100 WBC (Bld) 0.6 % Normal 0-1 [facility] Comment on above: Performed By: #### L 500.4100, [id number], L500.4050, L501.9520, L506.1001, L100.0100 #### [facility] [address] [place], [address] Eosinophils/100 WBC (Bld) 4.6 % Normal 0-5 [facility] Comment on above: Performed By: #### L 500.4100, [id number], L500.4050, L501.9520, L506.1001, L100.0100 #### [facility] [address] [place], [address] Erythrocyte distribution width (RBC) [Ratio] 16.3 % High 11.6-14.6 [facility] Comment on above: Performed By: #### L 500.4100, [id number], L500.4050, L501.9520, L506.1001, L100.0100 #### [facility] [address] [place], [address] Hematocrit (Bld) [Volume fraction] 37.5 % Normal 37-47 [facility] Comment on above: Performed By: #### L 500.4100, [id number], L500.4050, L501.9520, L506.1001, L100.0100 #### [facility] [address] [place], [address] Hemoglobin (Bld) [Mass/Vol] 11.9 g/dL Low 12.0-15.0 [facility] Comment on above: Performed By: #### L 500.4100, [id number], L500.4050, L501.9520, L506.1001, L100.0100 #### [facility] [address] [place], [address] IG% 0.200 Normal 0.0-0.9 [facility] Comment on above: Result Comment: IG% - Immature Granulocytes (promyelocytes, myelocytes and metamyelocytes) > 1% indicates that a LEFT SHIFT is Present. Performed By: #### L 500.4100, L501.9985, L500.4050, L501.9520, L506.1001, L100.0100 #### [facility] [address] [place], [address] Lymphocytes/100 WBC (Bld) 26.4 % Normal 19-41 [facility] Comment on above: Performed By: #### L 500.4100, [id number], L500.4050, L501.9520, L506.1001, L100.0100 #### [facility] [address] [place], [address] MCH (RBC) [Entitic mass] 26.1 pg Low 27.0-32.0 [facility] Comment on above: Performed By: #### L 500.4100, [id number], L500.4050, L501.9520, L506.1001, L100.0100 #### [facility] [address] [place], [address] MCHC (RBC) [Mass/Vol] 31.7 g/dL Low 32-36 [facility] Comment on above: Performed By: #### L 500.4100, [id number], L500.4050, L501.9520, L506.1001, L100.0100 #### [facility] [address] [place], [address] MCV (RBC) [Entitic vol] 82.2 fL Normal 81-99 [facility] Comment on above: Performed By: #### L 500.4100, [id number], L500.4050, L501.9520, L506.1001, L100.0100 #### [facility] [address] [place], [address] Monocytes/100 WBC (Bld) 7.9 % Normal 0-10 [facility] Comment on above: Performed By: #### L 500.4100, [id number], L500.4050, L501.9520, L506.1001, L100.0100 #### [facility] [address] [place], [address] Neutrophils/100 WBC (Bld) 60.3 % Normal 47-70 [facility] Comment on above: Performed By: #### L 500.4100, [id number], L500.4050, L501.9520, L506.1001, L100.0100 #### [facility] [address] [place], [address] Nucleated RBC (Bld) [#/Vol] 0 10*3/uL Normal 0-5 [facility] Comment on above: Performed By: #### L 500.4100, [id number], L500.4050, L501.9520, L506.1001, L100.0100 #### [facility] [address] [place], [address] Platelet mean volume (Bld) [Entitic vol] 10.9 fL Normal 6.2-12.0 [facility] Comment on above: Performed By: #### L 500.4100, L501.9985, L500.4050, L501.9520, L506.1001, L100.0100 #### [facility] [address] [place], [address] Platelets (Bld) [#/Vol] 284 10*3/uL Normal 150-450 [facility] Comment on above: Performed By: #### L 500.4100, L501.9985, L500.4050, L501.9520, L506.1001, L100.0100 #### [facility] [address] [place], [address] RBC (Bld) [#/Vol] 4.56 10*6/uL Normal 4.2-5.4 [facility] Comment on above: Performed By: #### L 500.4100, L501.9985, L500.4050, L501.9520, L506.1001, L100.0100 #### [facility] [address] [place], [address] RDW SD 49.1 fl High 35.1-43.9 [facility] Comment on above: Performed By: #### L 500.4100, L501.9985, L500.4050, L501.9520, L506.1001, L100.0100 #### [facility] [address] [place], [address] WBC (Bld) [#/Vol] 5.2 10*3/uL Normal 4.4-11.0 [facility] Comment on above: Performed By: #### L 500.4100, L501.9985, L500.4050, L501.9520, L506.1001, L100.0100 #### [facility] [address] [place], [address] Calculated very low density lipoprotein (VLDL) cholesterol measurementOrdered By: Donald Aguilar on 04-08-2025 Calculated very low density lipoprotein (VLDL) cholesterol measurement 15 mg/dL 5-40 [facility] Carbon dioxide, total [Moles /volume] in Central venous bloodOrdered By: Donald Aguilar on 04-08-2025 CO2 [Moles/Vol] 21.7 mmol/L 21.0-32.0 [facility] Chloride assayOrdered By: Arden Aguilar on 04-08-2025 Chloride [Moles/Vol] 106 mmol/L 98-108 [facility] Comprehensive Metabolic Prof ilon 04-08-2025 Albumin [Mass/Vol] 4.2 g/dL Normal 3.5-5.0 [facility] Comment on above: Performed By: #### L 500.4100, L501.9985, L500.4050, L501.9520, L506.1001, L100.0100 #### [facility] [address] [place], [address] Albumin/Globulin [Mass ratio] 1.3 {ratio} Normal 0.9-2.4 [facility] Comment on above: Performed By: #### L 500.4100, L501.9985, L500.4050, L501.9520, L506.1001, L100.0100 #### [facility] [address] [place], [address] ALK PHOS 78 U/L Normal 35-104 [facility] Comment on above: Performed By: #### L 500.4100, L501.9985, L500.4050, L501.9520, L506.1001, L100.0100 #### [facility] [address] [place], [address] ALT [Catalytic activity/Vol] 14 U/L Normal <=34 [facility] Comment on above: Performed By: #### L 500.4100, L501.9985, L500.4050, L501.9520, L506.1001, L100.0100 #### [facility] [address] [place], [address] AST [Catalytic activity/Vol] 23 U/L Normal <=31 [facility] Comment on above: Performed By: #### L 500.4100, L501.9985, L500.4050, L501.9520, L506.1001, L100.0100 #### [facility] [address] [place], [address] Bilirubin [Mass/Vol] 0.36 mg/dL Normal 0.00-1.30 [facility] Comment on above: Performed By: #### L 500.4100, L501.9985, L500.4050, L501.9520, L506.1001, L100.0100 #### [facility] [address] [place], [address] BUN/CRE 27.3 RATIO High 10-20 [facility] Comment on above: Performed By: #### L 500.4100, L501.9985, L500.4050, L501.9520, L506.1001, L100.0100 #### [facility] [address] [place], [address] Calcium [Mass/Vol] 9.4 mg/dL Normal 7.6-11.0 [facility] Comment on above: Performed By: #### L 500.4100, L501.9985, L500.4050, L501.9520, L506.1001, L100.0100 #### [facility] [address] [place], [address] Chloride [Moles/Vol] 106 mmol/L Normal 98-108 [facility] Comment on above: Performed By: #### L 500.4100, L501.9985, L500.4050, L501.9520, L506.1001, L100.0100 #### [facility] [address] [place], [address] CO2 [Moles/Vol] 21.7 mmol/L Normal 21.0-32.0 [facility] Comment on above: Performed By: #### L 500.4100, L501.9985, L500.4050, L501.9520, L506.1001, L100.0100 #### [facility] [address] [place], [address] Creatinine [Mass/Vol] 0.87 mg/dL Normal 0.70-1.20 [facility] Comment on above: Performed By: #### L 500.4100, L501.9985, L500.4050, L501.9520, L506.1001, L100.0100 #### [facility] [address] [place], [address] GAP 12 Normal 5-15 [facility] Comment on above: Performed By: #### L 500.4100, L501.9985, L500.4050, L501.9520, L506.1001, L100.0100 #### [facility] [address] [place], [address] GFR/1.73 sq M.predicted among non-blacks MDRD (S/P/Bld) [Vol rate/Area] 79 mL/min/{1.73_m2} Normal >60 [facility] Comment on above: Result Comment: mL/m in/1.73m2 CKD-EPI Creatinine Equation (2020) Performed By: #### L 500.4100, L501.9985, L500.4050, L501.9520, L506.1001, L100.0100 #### [facility] [address] [place], [address] Globulin (S) [Mass/Vol] 3.1 g/dL Normal 2.2-4.2 [facility] Comment on above: Performed By: #### L 500.4100, L501.9985, L500.4050, L501.9520, L506.1001, L100.0100 #### [facility] [address] [place], [address] Glucose [Mass/Vol] 102 mg/dL High 70-99 [facility] Comment on above: Performed By: #### L 500.4100, L501.9985, L500.4050, L501.9520, L506.1001, L100.0100 #### [facility] [address] [place], [address] Potassium [Moles/Vol] 4.4 mmol/L Normal 3.3-5.1 [facility] Comment on above: Performed By: #### L 500.4100, L501.9985, L500.4050, L501.9520, L506.1001, L100.0100 #### [facility] [address] [place], [address] Sodium [Moles/Vol] 140 mmol/L Normal 133-145 [facility] Comment on above: Performed By: #### L 500.4100, L501.9985, L500.4050, L501.9520, L506.1001, L100.0100 #### [facility] [address] [place], [address] T PROT 7.3 g/dL Normal 5.9-8.4 [facility] Comment on above: Performed By: #### L 500.4100, L501.9985, L500.4050, L501.9520, L506.1001, L100.0100 #### [facility] [address] [place], [address] Urea nitrogen [Mass/Vol] 24 mg/dL High 4-19 [facility] Comment on above: Performed By: #### L 500.4100, L501.9985, L500.4050, L501.9520, L506.1001, L100.0100 #### [facility] [address] [place], [address] Eosinophil percentageOrdered By: Donald Aguilar on 04-08-2025 Eosinophils/100 WBC (Bld) 4.6 % 0-5 [facility] Erythrocyte distribution wid th ratioOrdered By: Donald Aguilar on 04-08-2025 Erythrocyte distribution width (RBC) [Ratio] 16.3 % High 11.6-14.6 [facility] Erythrocyte distribution wid th standard deviationOrdered By: Donald Aguilar on 04-08-2025 Erythrocyte distribution width (RBC) [Ratio] 49.1 fl High 35.1-43.9 [facility] Glomerular filtration rate ( GFR) estimation/1.73 sq m using serum, plasma, or whole bOrdered By: Donald Aguilar on 04-08-2025 GFR/1.73 sq M.predicted among non-blacks MDRD (S/P/Bld) [Vol rate/Area] 79 mL/min/{1.73_m2} >60 [facility] Comment on above: mL/min/1.73m2 CKD-EP I Creatinine Equation (2020) Hematocrit Auto (Bld) [Volum e fraction]Ordered By: Donald Aguilar on 04-08-2025 Hematocrit (Bld) [Volume fraction] 37.5 % 37-47 [facility] Hemoglobin measurementOrdere d By: Donald Aguilar on 04-08-2025 Hemoglobin (Bld) [Mass/Vol] 11.9 g/dL Low 12.0-15.0 [facility] Immature granulocytes/100 WB C Auto (Bld)Ordered By: Donald Aguilar on 04-08-2025 Immature granulocytes/100 WBC (Bld) 0.200 % 0.0-0.9 [facility] Comment on above: IG% - Immature Granu locytes (promyelocytes, myelocytes and metamyelocytes) > 1% indicates that a LEFT SHIFT is Present. LDL calc ser/plasOrdered By: Donald Aguilar on 04-08-2025 Cholesterol in LDL [Mass/Vol] 91 mg/dL [facility] Comment on above: Mwpuxystty=817-303 m g/dL & Higher Cewe=132 mg/dL or greater Laboratory - Chemistry and C hemistry - challengeOrdered By: Donald Aguilar on 04-08-2025 AST [Catalytic activity/Vol] 23 U/L <32 [facility] Lipid Profileon 04-08-2025 CHOL:HDL 2.35 Normal [facility] Comment on above: Performed By: #### L 500.4100, L501.9985, L500.4050, L501.9520, L506.1001, L100.0100 #### [facility] [address] [place], [place], [address] Cholesterol [Mass/Vol] 185 mg/dL Normal <=200 [facility] Comment on above: Result Comment: Chol esterol level, Desirable <200 mg/dL Borderline high cholesterol 200-239 mg/dL High cholesterol >=240 mg/dL Recommendations of the NCEP Adult Treatment Panel for the following risk-cutoff thresholds for the [place] population. Performed By: #### L 500.4100, L501.9985, L500.4050, L501.9520, L506.1001, L100.0100 #### [facility] [address] [place], [address] Cholesterol in HDL [Mass/Vol] 79 mg/dL Normal [facility] Comment on above: Result Comment: Nora onal Cholesterol Education Program (NCEP) guidelines: <40 mg/dL: Low HDL-cholesterol (major risk factor for CHD) >= 60 mg/dL: High HDL-cholesterol (negative risk factor for CHD) HDL-cholesterol is affected by a number of factors, e.g. smoking, exercise, hormones, sex and age. Performed By: #### L 500.4100, L501.9985, L500.4050, L501.9520, L506.1001, L100.0100 #### [facility] [address] [place], [address] Cholesterol in LDL [Mass/Vol] 91 mg/dL Normal [facility] Comment on above: Result Comment: Bord aiptit=299-840 mg/dL Higher Gmcp=507 mg/dL or greater Performed By: #### L 500.4100, L501.9985, L500.4050, L501.9520, L506.1001, L100.0100 #### [facility] [address] [place], [address] Cholesterol in VLDL [Mass/Vol] 15 mg/dL Normal 5-40 [facility] Comment on above: Performed By: #### L 500.4100, L501.9985, L500.4050, L501.9520, L506.1001, L100.0100 #### [facility] [address] [place], [address] Triglyceride [Mass/Vol] 74 mg/dL Normal [facility] Comment on above: Result Comment: The drugs N-Acetylcysteine and Metamizole may falsely depress this assay. Normal range: <150 mg/dL Borderline High: 150-199 mg/dL High: 200-499 mg/dL Very High: >500 mg/dL Performed By: #### L 500.4100, L501.9985, L500.4050, L501.9520, L506.1001, L100.0100 #### [facility] [address] [place], [address] MCV (mean corpuscular volume ) determinationOrdered By: Donald Aguilar on 04-08-2025 MCV (RBC) [Entitic vol] 82.2 fL 81-99 [facility] Mean corpuscular hemoglobin (MCH) determinationOrdered By: Donald Aguilar on 04-08-2025 MCH (RBC) [Entitic mass] 26.1 pg Low 27.0-32.0 [facility] Mean corpuscular hemoglobin concentration (MCHC) determinationOrdered By: Donald Aguilar on 04-08-2025 MCHC (RBC) [Mass/Vol] 31.7 g/dL Low 32-36 [facility] Mean platelet volume determi nationOrdered By: Donald Aguilar on 04-08-2025 Platelet mean volume (Bld) [Entitic vol] 10.9 fL 6.2-12.0 [facility] Monocyte percentageOrdered B y: Donald Aguilar on 04-08-2025 Monocytes/100 WBC (Bld) 7.9 % 0-10 [facility] Neutrophil percentageOrdered By: Donald Aguilar on 04-08-2025 Neutrophils/100 WBC (Bld) 60.3 % 47-70 [facility] Nucleated red blood cell per centageOrdered By: Donald Aguilar on 04-08-2025 Nucleated RBC/100 WBC (Bld) [Ratio] 0 % 0-5 [facility] Platelet countOrdered By: Arden Aguilar on 04-08-2025 Platelets (Bld) [#/Vol] 284 10*3/uL 150-450 [facility] Potassium measurement (mass/ volume)Ordered By: Donald Aguilar on 04-08-2025 Potassium (Unsp spec) [Mass/Vol] 4.4 mmol/L 3.3-5.1 [facility] RBC Auto (Bld) [#/Vol]Ordere d By: Donald Aguilar on 04-08-2025 RBC (Bld) [#/Vol] 4.56 10*6/uL 4.2-5.4 [facility] Screening total cholesterol/ high density lipoprotein (HDL) cholesterol ratioOrdered By: Donald Aguilar on 04-08-2025 Cholesterol.total/Choles terol in HDL [Mass ratio] 2.35 {ratio} [facility] Serum creatinine measurement (mass/volume)Ordered By: Donald Aguilar on 04-08-2025 Creatinine [Mass/Vol] 0.87 mg/dL 0.70-1.20 [facility] Serum globulin measurementOr dered By: Donald Aguilar on 04-08-2025 Globulin (S) [Mass/Vol] 3.1 g/dL 2.2-4.2 [facility] Serum glucose measurement (m ass/volume)Ordered By: Donald Aguilar on 04-08-2025 Glucose [Mass/Vol] 102 mg/dL High 70-99 [facility] Serum or plasma alanine fortune otransferase (ALT) measurementOrdered By: Donald Aguilar on 04-08-2025 ALT [Catalytic activity/Vol] 14 U/L <35 [facility] Serum or plasma albumin adilia urement (mass/volume)Ordered By: Donald Aguilar on 04-08-2025 Albumin [Mass/Vol] 4.2 g/dL 3.5-5.0 [facility] Serum or plasma albumin/glob ulin mass ratioOrdered By: Donald Aguilar on 04-08-2025 Albumin/Globulin [Mass ratio] 1.3 {ratio} 0.9-2.4 [facility] Serum or plasma alkaline nupur sphatase measurementOrdered By: Donald Aguilar on 04-08-2025 ALP [Catalytic activity/Vol] 78 U/L 35-104 [facility] Serum or plasma calcium adilia urement (mass/volume)Ordered By: Donald Aguilar on 04-08-2025 Calcium [Mass/Vol] 9.4 mg/dL 7.6-11.0 [facility] Serum or plasma cholesterol in HDL measurement (mass/volume)Ordered By: Donald Aguilar on 04-08-2025 Cholesterol in HDL [Mass/Vol] 79 mg/dL >40 [facility] Comment on above: National Cholesterol Education Program (NCEP) guidelines:<40 mg/dL: Low HDL-cholesterol (major risk factor for CHD)>= 60 mg/dL: High HDL-cholesterol (negative risk factor for CHD)HDL-cholesterol is affected by a number of factors, e.g. smoking, exercise, hormones, sex and age. Serum or plasma cholesterol measurement (mass/volume)Ordered By: Donald Aguilar on 04-08-2025 Cholesterol [Mass/Vol] 185 mg/dL <201 [facility] Comment on above: Cholesterol level, D esirable <200 mg/dLBorderline high cholesterol 200-239 mg/dLHigh cholesterol >=240 mg/dLRecommendations of the NCEP Adult Treatment Panel for the following risk-cutoff thresholds for the [place] population. Serum or plasma urea nitroge n measurement (mass/volume)Ordered By: Donald Aguilar on 04-08-2025 Urea nitrogen [Mass/Vol] 24 mg/dL High 4-19 [facility] Sodium levelOrdered By: Donald Aguilar on 04-08-2025 Sodium [Moles/Vol] 140 mmol/L 133-145 [facility] TSH DL <= 0.005 mIU/L QnOrde red By: Donald Aguilar on 04-08-2025 TSH Qn 0.549 uIU/mL 0.300-4.200 [facility] Thyroid Stim Hormone (TSH)on 04-08-2025 TSH 0.549 uIU/mL Normal 0.300-4.200 [facility] Comment on above: Performed By: #### L 500.4100, L501.9985, L500.4050, L501.9520, L506.1001, L100.0100 #### [facility] [address] [place], [address] Total proteinOrdered By: Trudy Aguilar on 04-08-2025 Protein [Mass/Vol] 7.3 g/dL 5.9-8.4 [facility] Triglycerides measurementOrd ered By: Donald Aguilar on 04-08-2025 Triglyceride [Mass/Vol] 74 mg/dL <199 [facility] Comment on above: The drugs N-Acetylcy steine and Metamizole may falsely depress this assay. Normal range: <150 mg/dLBorderline High: 150-199 mg/dLHigh: 200-499 mg/dLVery High: >500 mg/dL Vitamin D,25 Hydroxyon 04-08 Vitamin D 25-OH 43.2 ng/mL Normal 30-100 [facility] Comment on above: Result Comment: Bijal min D Status Deficiency: <20 ng/mL (50nmol/L) Insufficiency: 20-30 ng/mL (50-75 nmol/L) Sufficiency: 30-100 ng/mL (75-250 nmol/L) Toxicity: >100 ng/mL (>250 nmol/L) Performed By: #### L 500.4100, L501.9985, L500.4050, L501.9520, L506.1001, L100.0100 #### [facility] [address] [place], [address] White blood cell (WBC) count Ordered By: Donald Aguilar on 04-08-2025 WBC (Bld) [#/Vol] 5.2 10*3/uL 4.4-11.0 [facility] Office Visit (UCTR ) WESLEYSARA ([id number]) 1970 F Date Time Provider Department 01/08/25 10:30 AM THERESA MORAN [facility] During your visit today, we recorded the following information about you: Temperature Pulse Respiration Blood pressure 98 degrees 102/minute 18/minute 147/96 Weight 106.1 kg Theresa Moran APRN.[employer] COMPUTER CONSULTANT 01/08/2025 11:41 AM Signed [facility] Subjective Sara Olson is a 54 year old female. Patient presents with: Low Back Pain The history is provided by the patient. No licensed occupational therapist was used. HPI Sara Olson is a 54 year old female who presents today for CC of lower back pain with radiation down left leg. She has had this off and on for months, but states in the past 24 hours it was worse yesterday at work. She has been using lidocaine patches and aleve with short term relief. She denies any known injury or trauma, she has never had any imaging. BP 147/96 Pulse 102 Temp 36.7 ?C (98 ?F) Resp 18 Wt 106.1 kg (233 lb 14.5 oz) LMP 10/01/2017 SpO2 98% BMI 36.64 kg/m? Social History Tobacco Use Smoking status: Never Smokeless tobacco: Never Substance Use Topics Alcohol use: No Drug use: No PAST MEDICAL HISTORY Diagnosis Date Abnormal glandular Papanicolaou smear of cervix Abn. Pap smear (cervix) Asthma DDD (degenerative disc disease), cervical DDD (degenerative disc disease), lumbar Hypertension Miscarriage 2005 I have confirmed and edited as necessary, the [facility] Review of Systems Constitutional: Negative for fatigue and fever. Musculoskeletal: Positive for back pain (shooting down left leg). Negative for myalgias. Skin: Negative for color change and rash. Objective BP 147/96 Pulse 102 Temp 36.7 ?C (98 ?F) Resp 18 Wt 106.1 kg (233 lb 14.5 oz) LMP 10/01/2017 SpO2 98% BMI 36.64 kg/m? Physical Exam Constitutional: General: She is not in acute distress. HENT: Head: Normocephalic and atraumatic. Eyes: Conjunctiva/sclera: Conjunctivae normal. Pupils: Pupils are equal, round, and reactive to light. Cardiovascular: Pulses: Dorsalis pedis pulses are 2+ on the right side and 2+ on the left side. Posterior tibial pulses are 2+ on the right side and 2+ on the left side. Pulmonary: Effort: Pulmonary effort is normal. Musculoskeletal: Cervical back: Normal, normal range of motion and neck supple. Thoracic back: Normal. Lumbar back: Tenderness present. No swelling, edema, deformity, signs of trauma, lacerations, spasms or bony tenderness. Normal range of motion. Negative right straight leg raise test and negative left straight leg raise test. No scoliosis. Comments: She denies any loss or decrease in bowel or bladder function, no numbness or weakness in legs Skin: General: Skin is warm and dry. Neurological: Mental Status: She is alert and oriented to person, place, and time. Sensory: Sensation is intact. {ASSESSMENT/PLAN: 1. Acute left-sided low back pain with left-sided sciatica - ICD9: 724.2, 724.3, ICD10: M54.42 Sciatica - Medrol dose pack - Patient given instructions use of medications as ordered, intermittent rest, and back care exercise program Follow up with PCP as needed - XR LUMBAR LIMITED 2V AP/LAT FINDINGS: A transitional vertebra seen at the lumbosacral junction. No acute fracture noted. There is left-sided curvature/levoscolios is. Grade 1 L5-S1 anterolisthesis is demonstrated (the iliac crest level is considered to be L4-5). There is L2-3, L3-4 and L4-5 disc space narrowing. There is moderate osteophyte formation. IMPRESSION: Lumbar spine degenerative changes with multilevel disc space narrowing. Interpreted by : LOLY RIVERA MD History and Record Review External record(s) reviewed: prior outpatient record. Findings from review of outpatient records: no lower back xray Diagnosis and treatment plan were discussed and questions were answered to the patient's satisfaction. Pt acknowledged understanding of concepts and follow up plan. Specific signs and symptoms that would indicate the need for higher level of care were discussed in detail warranting prompt ER evaluation. BEN Rubio Tonya, APRN.CNP 01/08/2025 11:40 AM Signed Report immediately to ER for foot drop, bowel or bladder loss, numbness or tingling of legs/feet or any new or worsening concerns if unable to get into PMD Allergies As of Date: 01/08/2025 Noted Allergy Reaction SULFA (SULFONAMIDE ANTIBIOTICS) 09/24/2014 4 - Hives Date Reviewed: 01/08/2025 Reviewed by: Alejandra Nava MA - Fully Assessed Reason for Visit: Low Back Pain [126] Primary Visit Diagnosis:Acute left-sided low back pain with left-sided sciatica [M54.42] Order(s):XR LUMBAR LIMITED 2V AP/LAT [[id number]] Order #: [id number] FUTURE methylPREDNISolone (MEDROL, PIERCE,) 4 mg Dose-PackFollow dosing instructions, (more content not included)... Normal [facility] XR LUMBAR 2V AP/LATon 2024 XR LUMBAR 2V AP/LAT * * *Final Report* * * DATE OF EXAM: Jan 08 2025 10:53AM WOX 5229 - XR LUMBAR 2V AP/LAT / PROCEDURE REASON: Acute left-sided low back pain with left-sided sciatica * * * * Physician Interpretation * * * * EXAM TITLE: XR LUMBAR 2V AP/LAT EXAM DATE/TIME: 01/08/2025 10:53 AM COMPARISON: None. CLINICAL INDICATION/HISTORY: Low back pain. TECHNIQUE: AP, lateral and cone down lateral views of the lumbar spine are presented. FINDINGS: A transitional vertebra seen at the lumbosacral junction. No acute fracture noted. There is left-sided curvature/levoscolios is. Grade 1 L5-S1 anterolisthesis is demonstrated (the iliac crest level is considered to be L4-5). There is L2-3, L3-4 and L4-5 disc space narrowing. There is moderate osteophyte formation. IMPRESSION: Lumbar spine degenerative changes with multilevel disc space narrowing. Wafer Abrading Machine Tender: PAOLA Transcribe Date/Time: Jan 08 2025 11:10A Dictated by : LOLY RIVERA MD This examination was interpreted and the report reviewed and electronically signed by: LOLY RIVERA MD on Jan 08 2025 11:13AM EST [id number] Normal [facility] XR Lumbar spine AP and Later cali 01-08-2025 IMPRESSION: Lumbar spine degenerative changes with multilevel disc space narrowing. Wafer Abrading Machine Tender: [facility] Transcribe Date/Time: Jan 08 2025 11:10A Dictated by : LOLY RIVERA MD This examination was interpreted and the report reviewed and electronically signed by: LOLY RIVERA MD on Jan 08 2025 11:13AM EST DIVISION OF RADIOLOGY * * *Final Report* * * DATE OF EXAM: Jan 08 2025 10:53AM WOX 5229 - XR LUMBAR 2V AP/LAT / PROCEDURE REASON: Acute left-sided low back pain with left-sided sciatica * * * * Physician Interpretation * * * * EXAM TITLE: XR LUMBAR 2V AP/LAT EXAM DATE/TIME: 01/08/2025 10:53 AM COMPARISON: None. CLINICAL INDICATION/HISTORY: Low back pain. TECHNIQUE: AP, lateral and cone down lateral views of the lumbar spine are presented. FINDINGS: A transitional vertebra seen at the lumbosacral junction. No acute fracture noted. There is left-sided curvature/levoscolios is. Grade 1 L5-S1 anterolisthesis is demonstrated (the iliac crest level is considered to be L4-5). There is L2-3, L3-4 and L4-5 disc space narrowing. There is moderate osteophyte formation. DIVISION [facility] RADIOLOGY [facility] * * *Final Report* * * DATE OF EXAM: Jan 08 2025 10:53AM WOX 5229 - XR LUMBAR 2V AP/LAT / PROCEDURE REASON: Acute left-sided low back pain with left-sided sciatica * * * * Physician Interpretation * * * * EXAM TITLE: XR LUMBAR 2V AP/LAT EXAM DATE/TIME: 01/08/2025 10:53 AM COMPARISON: None. CLINICAL INDICATION/HISTORY: Low back pain. TECHNIQUE: AP, lateral and cone down lateral views of the lumbar spine are presented. FINDINGS: A transitional vertebra seen at the lumbosacral junction. No acute fracture noted. There is left-sided curvature/levoscolios is. Grade 1 L5-S1 anterolisthesis is demonstrated (the iliac crest level is considered to be L4-5). There is L2-3, L3-4 and L4-5 disc space narrowing. There is moderate osteophyte formation. IMPRESSION IMPRESSION: Lumbar spine degenerative changes with multilevel disc space narrowing. Wafer Abrading Machine Tender: PSCB Transcribe Date/Time: Jan 08 2025 11:10A Dictated by : LOLY RIVERA MD This examination was interpreted and the report reviewed and electronically signed by: LOLY RIVERA MD on Jan 08 2025 11:13AM EST [facility] Radiology Study observation (narrative) Evita Thomas XR Lumbar spine AP and Later alOrdered By: Ccf Provider on 01-08-[address] [facility] CNOVon 12-16-2024 CNOV Office Visit (UCWSTR ) SARA OLSON ([id number]) 1970 F Date Time Provider Department 12/16/24 10:45 AM [facility]ELA ARAGON [facility] During your visit today, we recorded the following information about you: Temperature Pulse Respiration Blood pressure 97.7 degrees 106/minute 18/minute 128/86 Weight 105.6 kg Marcela Aragon APRN.[facility] 12/16/2024 11:25 AM Signed CC: Patient presents with: Chest Congestion: cough x 3 weeks HPI: Sara Olson is a 54 year old female who presents to the office with complaint of chest congestion, head congestion, and cough, nonproductive for 3 weeks. Symptoms are staying the same. Associated symptoms includes wheezing. Denies nausea, vomiting , and diarrhea. Treatments tried include nothing so far. with no relief of symptoms. Sick contacts: unknown. History of asthma, frequent episodes of bronchitis, chronic bronchitis, bronchiectasis or COPD: asthma, not on controller medication Smoker: No Seasonal/environmenta l allergies: yes The ROS is otherwise negative. The patient's pmh, medications, allergies, and past visits are reviewed. PHYSICAL EXAM: BP 128/86 Pulse 106 Temp 36.5 ?C (97.7 ?F) Resp 18 Wt 105.6 kg (232 lb 12.9 oz) LMP 10/01/2017 SpO2 95% BMI 36.46 kg/m? General appearance: alert, cooperative, pleasant, in no acute distress Head: Normocephalic Eyes: EOM's intact, conjunctiva pink and moist, no icterus, sclera white, non-injected Ears: Right ear: External ear/canal- Normal, TM - clear with good landmarks. Left ear: External ear/canal- Normal, TM - clear with good landmarks Oropharynx:moist without lesions, No erythema, exudates or tonsillar hypertrophy. Heart: Negative. RRR without obvious murmur, gallop, or rubs. No ectopy. Lungs: wheezing diffusely PAST MEDICAL HISTORY Diagnosis Date Abnormal glandular Papanicolaou smear of cervix Abn. Pap smear (cervix) Asthma DDD (degenerative disc disease), cervical DDD (degenerative disc disease), lumbar Hypertension Miscarriage 2006 PAST SURGICAL HISTORY Procedure Laterality Date CONIZATION CERVIX W/WO DANDC RPR ELTRD EXC 2011 LEEP-Cervix DILATION AND CURETTAGE DXAND/THER NONOBSTETRIC 05/2006 Following Miscarriage EXCISION GANGLION WRIST DORSAL/VOLAR PRIMARY Left INJ WO/CATH ANES/STER CERV/THORAC 2014 Epidural steroid injection, cervical or thoracic PAST SURGICAL HISTORY OF 04/2015 Fatty Cyst Removed From Back Of Neck ALLERGIES Sulfa (Sulfonamide Antibiotics) MEDICATIONS verapamil SR (CALAN SR, ISOPTIN SR) 120 mg CR tablet Take 120 mg by mouth daily at bedtime. ALBUTEROL SULFATE (VENTOLIN HFA INHALATION) Inhale as instructed. OMEPRAZOLE ORAL Take by mouth. Phentermine HCl 37.5 mg tablet TAKE 1 TABLET BY MOUTH ONCE DAILY IN THE MORNING (Patient not taking: Reported on 12/16/2024) ADVAIR HFA 115-21 mcg/actuation inhaler Inhale 1 Puff as instructed twice daily. (Patient not taking: Reported on 12/16/2024) Levocetirizine (XYZAL) 5 mg tablet Take 5 mg by mouth. (Patient not taking: Reported on 12/16/2024) FAMILY HISTORY Problem Relation Age of Onset Asthma Mother Hypertension Mother Diabetes Father other (Lung Cancer) Maternal Grandmother Ovarian cancer Daughter 20 Heart Paternal Uncle [place] Heart Paternal Uncle [place] Prostate Cancer Maternal Uncle Social History Tobacco Use Smoking status: Never Smokeless tobacco: Never Substance Use Topics Alcohol use: No Drug use: No ASSESSMENT/PLAN: 1. Acute cough - ICD9: 786.2, ICD10: R05.1 - XR CHEST 2V FRONTAL/LAT * * * * Physician Interpretation * * * * EXAMINATION: CHEST RADIOGRAPH (2 VIEW FRONTAL AND LATERAL) CLINICAL HISTORY: Acute cough MQ: XC2_6 EXAM DATE/TIME: 12/16/2024 11:08 AM COMPARISON: No relevant prior studies available. RESULT: Lines, tubes, and devices: None. Lungs and pleura: No consolidation. No lung mass. No pleural effusion. No pneumothorax. Cardiomediastinal silhouette: Normal cardiomediastinal silhouette. Bones and soft tissues: Unremarkable. IMPRESSION IMPRESSION: No acute radiographic abnormality. Wafer Abrading Machine Tender: PAOLA Transcribe Date/Time: Dec 16 2024 11:15A Dictated by : SEDA LIN MD - AIRSUPRA 90 MCG-80 MCG/ACTUATION HFA AEROSOL INHALER Prescription instructions reviewed with patient as applicable. Potential red flag symptoms discussed with the patient. Reviewed appropriate action plan to take if red flag symptoms occur. Patient agreeable to treatment plan. Marcela Aragon APRN.[employer] COMPUTER CONSULTANT Allergies As of Date: 12/16/2024 Noted Allergy Reaction SULFA (SULFONAMIDE ANTIBIOTICS) 09/24/2014 4 - Hives Date Reviewed: 12/16/2024 Reviewed by: Amy Cassidy MA - Fully Assessed Reason for Visit: Chest Congestion [236] Cmt: cough x 3 weeks Primary Visit Diagnosis:Acute cough [R05.1] Order(s):XR CHEST 2V FRONTAL/LAT [[id number]] Order #: [id number] FUTURE albuterol (more content not included)... Normal [facility] XR CHEST 2V FRONTAL/LATon XR CHEST 2V FRONTAL/LAT * * *Final Repor t* * * DATE OF EXAM: Dec 16 2024 11:08AM WOX 5291 - XR CHEST 2V FRONTAL/LAT / PROCEDURE REASON: Acute cough * * * * Physician Interpretation * * * * EXAMINATION: CHEST RADIOGRAPH (2 VIEW FRONTAL and LATERAL) CLINICAL HISTORY: Acute cough MQ: XC2_6 EXAM DATE/TIME: 12/16/2024 11:08 AM COMPARISON: No relevant prior studies available. RESULT: Lines, tubes, and devices: None. Lungs and pleura: No consolidation. No lung mass. No pleural effusion. No pneumothorax. Cardiomediastinal silhouette: Normal cardiomediastinal silhouette. Bones and soft tissues: Unremarkable. IMPRESSION: No acute radiographic abnormality. Wafer Abrading Machine Tender: JASEB Transcribe Date/Time: Dec 16 2024 11:15A Dictated by : SEDA LIN MD This examination was interpreted and the report reviewed and electronically signed by: SEDA LIN MD on Dec 16 2024 11:15AM EST [id number] Normal [facility] XR Chest PA and Lateralon IMPRESSION: No acute radiographic abnormality. Wafer Abrading Machine Tender: JASE Transcribe Date/Time: Dec 16 2024 11:15A Dictated by : SEDA LIN MD This examination was interpreted and the report reviewed and electronically signed by: SEDA LIN MD on Dec 16 2024 11:15AM [facility] DIVISION OF RADIOLOGY * * *Final Report* * * DATE OF EXAM: Dec 16 2024 11:08AM WOX 5291 - XR CHEST 2V FRONTAL/LAT / PROCEDURE REASON: Acute cough * * * * Physician Interpretation * * * * EXAMINATION: CHEST RADIOGRAPH (2 VIEW FRONTAL & LATERAL) CLINICAL HISTORY: Acute cough MQ: XC2_6 EXAM DATE/TIME: 12/16/2024 11:08 AM COMPARISON: No relevant prior studies available. RESULT: Lines, tubes, and devices: None. Lungs and pleura: No consolidation. No lung mass. No pleural effusion. No pneumothorax. Cardiomediastinal silhouette: Normal cardiomediastinal silhouette. Bones and soft tissues: Unremarkable. DIVISION OF RADIOLOGY Provider, [facility] - 12/16/2024 * * *Final Report* * * DATE OF EXAM: Dec 16 2024 11:08AM WOX 5291 - XR CHEST 2V FRONTAL/LAT / PROCEDURE REASON: Acute cough * * * * Physician Interpretation * * * * EXAMINATION: CHEST RADIOGRAPH (2 VIEW FRONTAL & LATERAL) CLINICAL HISTORY: Acute cough MQ: XC2_6 EXAM DATE/TIME: 12/16/2024 11:08 AM COMPARISON: No relevant prior studies available. RESULT: Lines, tubes, and devices: None. Lungs and pleura: No consolidation. No lung mass. No pleural effusion. No pneumothorax. Cardiomediastinal silhouette: Normal cardiomediastinal silhouette. Bones and soft tissues: Unremarkable. IMPRESSION IMPRESSION: No acute radiographic abnormality. Wafer Abrading Machine Tender: PSCB Transcribe Date/Time: Dec 16 2024 11:15A Dictated by : SEDA LIN MD This examination was interpreted and the report reviewed and electronically signed by: SEDA LIN MD on Dec 16 2024 11:15AM [facility] Radiology Study observation (narrative) Evita Thomas XR Chest PA and LateralOrder ed By: Ccf Provider on 12-16-[address] [facility] No Panel InformationOrdered By: Donald Aguilar on 05-16-2023 Miscellaneous Test See comment [facility] Comment on above: TEST RESULT LIMITSSc abies Examination None Seen None seen TESTING PERFORMED AT [facility]. ORIGINAL REPORT ON FILE IN LAB CONTAINS ADDITIONAL TEST SITE INFORMATION. Basophil percentageOrdered B y: Dr. Aguilar on 01-01-2023 Bilirubin [Mass/Vol] 0.40 mg/dL 0.20-1.00 [facility] Comment on above: For patients on eltr ombopag therapy, use of Dimension Sylvester TBIL is not recommended. Chloride [Moles/Vol] 108 mmol/L 98-107 [facility] Cholesterol [Mass/Vol] 160 mg/dL <200 [facility] Comment on above: <200 mg/dL Desirable 200-240 mg/dL Borderline >240 mg/dL High Risk Glucose [Mass/Vol] 97 mg/dL 74-106 [facility] Potassium [Moles/Vol] 3.3 mmol/L 3.5-5.1 [facility] Protein [Mass/Vol] 8.3 g/dL 6.4-8.2 [facility] Sodium [Moles/Vol] 141 mmol/L 136-145 [facility] Triglyceride [Mass/Vol] 65 mg/dL <199 [facility] Comment on above: The drugs N-Acetylcy steine and Metamizole may falsely depress this assay.Serum Triglycerides Reference Interval Normal <150 mg/dL Borderline high 150 - 199 mg/dL High 200 - 499 mg/dL Very High > or = 500 mg/dL Laboratory - Chemistry and C hemistry - challengeOrdered By: Dr. Aguilar on 01-01-2023 ALP [Catalytic activity/Vol] 77 U/L 45-117 [facility] ALT [Catalytic activity/Vol] 30 U/L 13-56 [facility] CO2 [Moles/Vol] 26.0 mmol/L 21.0-32.0 [facility] Globulin (S) [Mass/Vol] 4.2 g/dL 2.2-4.2 [facility] Urea nitrogen/Creatinine [Mass ratio] 22.2 mg/mg 10-20 [facility] No Panel InformationOrdered By: Dr. Aguilar on 01-01-2023 Estimated GFR (MDRD) Amer 102 mL/min >60 [facility] Comment on above: GFR Calc Estimated GFR (MDRD) Non-Af Amer 84 mL/min >60 [facility] Comment on above: Non- GFR Calc Serum or plasma albumin adilia urement (mass/volume)Ordered By: Dr. Aguilar on 01-01-2023 Albumin [Mass/Vol] 4.1 g/dL 3.2-5.0 [facility] Serum or plasma albumin/glob ulin mass ratioOrdered By: Dr. Aguilar on 01-01-2023 Albumin/Globulin [Mass ratio] 1.0 {ratio} 0.9-2.4 [facility] Serum or plasma calcium adilia urement (mass/volume)Ordered By: Dr. Aguilar on 01-01-2023 Calcium [Mass/Vol] 9.3 mg/dL 8.5-10.1 [facility] Serum or plasma cholesterol in HDL measurement (mass/volume)Ordered By: Dr. Aguilar on 01-01-2023 Cholesterol in HDL [Mass/Vol] 79 mg/dL >40 [facility] Comment on above: The drugs N-Acetylcy steine and Metamizole may falsely depress this assay. Reference Range HDL <40 mg/dL Low HDL Cholesterol HDL >or= 60 mg/dL High HDL Cholesterol Serum or plasma cholesterol in VLDL measurement (mass/volume)Ordered By: Dr. Aguilar on 01-01-2023 Cholesterol in VLDL [Mass/Vol] 13 mg/dL 5-40 [facility] Serum or plasma creatinine m easurement (mass/volume)Ordered By: Dr. Aguilar on 01-01-2023 Creatinine [Mass/Vol] 0.76 mg/dL 0.55-1.02 [facility] Comment on above: The validity of the calculated GFR & GFRAA in patients over 70 years has not been determined. Clinical correlation is essential. Serum or plasma low density lipoprotein (LDL) cholesterol measurement (mass/volume)Ordered By: Dr. Aguilar on 01-01-2023 Cholesterol in LDL [Mass/Vol] 68 mg/dL 0-130 [facility] Serum or plasma urea nitroge n measurement (mass/volume)Ordered By: Dr. Aguilar on 01-01-2023 Urea nitrogen [Mass/Vol] 17 mg/dL 7-18 [facility] Thin prep Papanicolaou smear with manual screeningOrdered By: Dr. Aguilar on 01-01-2023 Thin prep Papanicolaou smear with manual screening 22 U/L 15-37 [facility] Thin prep Papanicolaou smear with manual screening 7 5-15 [facility] No Panel Informationon 11-21 Result Reviewed By Dioni [facility] Tuberculin PPD Skin Test (Clinic) Negative [facility] COVID-19 virus antigen assay Ordered By: Dr. Aguilar on 10-02-2022 SARS-CoV-2 (COVID-19) Ag IA.rapid Ql (Resp) [facility] No Panel Informationon 02-01 Follicle Stimulating Hormone 82.7 mIU/mL [facility] Work Phone: Comment on above: NORMAL REFERENCE RAN GES FEMALE FOLLICULAR 2.3 - 12.6 mIU/mL MID-CYCLE PEAK 5.2 - 17.5 mIU/mL LUTEAL 1.7 - 12.9 mIU/mL POST-MENOPAUSAL ON MHT 5.9 - 72.8 mIU/mL NOT ON MHT 12.7 - 132.2 mlU/mL MALE 0.7 - 10.8 mIU/mL Serum or plasma estradiol (E 2) measurement (mass/volume)on 02-01-2022 E2 [Mass/Vol] 18.3 pg/mL [facility] Work Phone: Comment on above: NORMAL REFERENCE RAN GES FEMALE FOLLICULAR 21.4 - 164.8 pg/mL MID-CYCLE PEAK 49.9 - 367.2 pg/mL LUTEAL 40.2 - 259.0 pg/mL POST-MENOPAUSAL ON MHT <11.0 - 462.1 pg/mL NOT ON MHT <11.0 - 58.3 pg/mL MALE <11.0 - 52.5 pg/mL NOTE:[employer] HAS CONFIRMED THE DRUG FULVETRANT (FASLODEX) MAY CAUSE FALSELY ELEVATED ESTRADIOL RESULTS WHEN USING THIS TEST METHOD. IF PATIENT IS TAKING FULVESTRANT AN ALTERNATIVE METHOD SHOULD BE USED TO DETERMINE ESTRADIOL CONCENTRATION. Absolute lymphocyte counton 11-30-2021 Lymphocytes Auto (Unsp spec) [#/Vol] 1.44 10*3/uL 0.83-4.51 [facility] Work Phone: Basophil percentageon 2021 Basophils/100 WBC (Bld) 0.4 % 0-1 [facility] Work Phone: Bilirubin [Mass/Vol] 0.40 mg/dL 0.20-1.00 [facility] Work Phone: Comment on above: For patients on eltr ombopag therapy, use of Dimension Sylvester TBIL is not recommended. Chloride [Moles/Vol] 106 mmol/L 98-107 [facility] Work Phone: Cholesterol [Mass/Vol] 173 mg/dL <200 [facility] Work Phone: Comment on above: <200 mg/dL Desirable 200-240 mg/dL Borderline >240 mg/dL High Risk Eosinophils/100 WBC (Bld) 2.5 % 0-5 [facility] Work Phone: Glucose [Mass/Vol] 83 mg/dL 74-106 [facility] Work Phone: Neutrophils (Bld) [#/Vol] 3.6 10*3/uL 2.0-7.7 [facility] Work Phone: Neutrophils/100 WBC (Bld) 65.0 % 47-70 [facility] Work Phone: Potassium [Moles/Vol] 3.7 mmol/L 3.5-5.1 [facility] Work Phone: Protein [Mass/Vol] 8.2 g/dL 6.4-8.2 [facility] Work Phone: Sodium [Moles/Vol] 136 mmol/L 136-145 [facility] Work Phone: [phone] Triglyceride [Mass/Vol] 37 mg/dL [facility] Work Phone: [phone] Comment on above: The drugs N-Acetylcy steine and Metamizole may falsely depress this assay.Serum Triglycerides Reference Interval Normal <150 mg/dL Borderline high 150 - 199 mg/dL High 200 - 499 mg/dL Very High > or = 500 mg/dL WBC (Bld) [#/Vol] 5.6 10*3/uL 4.4-11.0 [facility] Work Phone: [phone] Blood erythrocytes count (nu mber/volume)on 11-30-2021 RBC (Bld) [#/Vol] 4.72 10*6/uL 4.2-5.4 [facility] Work Phone: [phone] Blood hemoglobin measurement (mass/volume)on 11-30-2021 Hemoglobin (Bld) [Mass/Vol] 12.5 g/dL 12.0-15.0 [facility] Work Phone: Blood lymphocytes/100 leukoc yteson 11-30-2021 Lymphocytes/100 WBC (Bld) 25.8 % 19-41 [facility] Work Phone: [phone] Blood monocytes/100 leukocyt eson 11-30-2021 Monocytes/100 WBC (Bld) 5.9 % 0-10 [facility] Work Phone: [phone] Blood platelet mean volumeon 11-30-2021 Platelet mean volume (Bld) [Entitic vol] 11.0 fL 6.2-12.0 [facility] Work Phone: [phone] Determination of erythrocyte mean corpuscular volume (MCV)on 11-30-2021 MCV (RBC) [Entitic vol] 85.4 fL 81-99 [facility] Work Phone: [phone] Hematocrit Auto (Bld) [Volum e fraction]on 11-30-2021 Hematocrit (Bld) [Volume fraction] 40.3 % 37-47 [facility] Work Phone: [phone] Laboratory - Chemistry and C hemistry - challengeon 11-30-2021 ALP [Catalytic activity/Vol] 75 U/L 45-117 [facility] Work Phone: [phone] ALT [Catalytic activity/Vol] 21 U/L 13-56 [facility] Work Phone: [phone] CO2 [Moles/Vol] 25.0 mmol/L 21.0-32.0 [facility] Work Phone: [phone] Globulin (S) [Mass/Vol] 4.5 g/dL 2.2-4.2 [facility] Work Phone: [phone] Urea nitrogen/Creatinine [Mass ratio] 29.5 mg/mg 10-20 [facility] Work Phone: [phone] Laboratory - Hematology and Cell countson 11-30-2021 Erythrocyte distribution width (RBC) [Entitic vol] 49.1 fL 35.1-43.9 [facility] Work Phone: [phone] Erythrocyte distribution width (RBC) [Ratio] 15.8 % 11.6-14.6 [facility] Work Phone: [phone] Immature granulocytes/100 WBC (Bld) 0.400 % 0.0-0.9 [facility] Work Phone: [phone] Comment on above: IG% - Immature Granu locytes (promyelocytes, myelocytes and metamyelocytes) > 1% indicates that a LEFT SHIFT is Present. MCH (RBC) [Entitic mass] 26.5 pg 27.0-32.0 [facility] Work Phone: [phone] Nucleated RBC/100 WBC (Bld) [Ratio] 0 % 0-5 [facility] Work Phone: [phone] MCHC Auto (RBC) [Mass/Vol]on 11-30-2021 MCHC (RBC) [Mass/Vol] 31.0 g/dL 32-36 [facility] Work Phone: [phone] No Panel Informationon 11-30 Result Reviewed By ANA Santos [facility] Work Phone: Tuberculin PPD Skin Test (Clinic) Negative [facility] Work Phone: [phone] Estimated GFR (MDRD) Amer 105 mL/min >60 [facility] Work Phone: [phone] Comment on above: GFR Calc Estimated GFR (MDRD) Non-Af Amer 87 mL/min >60 [facility] Work Phone: [phone] Comment on above: Non- GFR Calc Thyroid Stimulating Hormone (TSH) 0.84 uIU/mL 0.358-3.74 [facility] Work Phone: [phone] Vitamin D 25-Hydroxy 37.6 ng/mL [facility] Work Phone: Comment on above: Vitamin D 25(OH) Sta tus Range Deficiency <20 ng/mL (50nmol/L) Insufficiency 20 - 30 ng/mL (50 - 75 nmol/L) Sufficiency 30 - 100 ng/mL (75 - 250 nmol/L) Toxicity >100 ng/mL (>250 nmol/L) Platelets bldon 11-30-2021 Platelets (Bld) [#/Vol] 303 10*3/uL 150-450 [facility] Work Phone: [phone] Serum or plasma albumin adilia urement (mass/volume)on 11-30-2021 Albumin [Mass/Vol] 3.7 g/dL 3.2-5.0 [facility] Work Phone: [phone] Serum or plasma albumin/glob ulin mass ratioon 11-30-2021 Albumin/Globulin [Mass ratio] 0.8 {ratio} 0.9-2.4 [facility] Work Phone: [phone] Serum or plasma calcium adilia urement (mass/volume)on 11-30-2021 Calcium [Mass/Vol] 8.8 mg/dL 8.5-10.1 [facility] Work Phone: [phone] Serum or plasma cholesterol in HDL measurement (mass/volume)on 11-30-2021 Cholesterol in HDL [Mass/Vol] 65 mg/dL [facility] Work Phone: [phone] Comment on above: The drugs N-Acetylcy steine and Metamizole may falsely depress this assay. Reference Range HDL <40 mg/dL Low HDL Cholesterol HDL >or= 60 mg/dL High HDL Cholesterol Serum or plasma cholesterol in VLDL measurement (mass/volume)on 11-30-2021 Cholesterol in VLDL [Mass/Vol] 7 mg/dL 5-40 [facility] Work Phone: Serum or plasma cortisol maxx surement (mass/volume)on 11-30-2021 Cortisol [Mass/Vol] 5.50 ug/dL 3.44-22.45 [facility] Work Phone: Comment on above: Adult (AM) 5.27 - 22 .45 ug/dL Adult (PM) 3.44 - 16.76 ug/dLPlease note revised CORTISOL reference range effective 2019. Serum or plasma creatinine m easurement (mass/volume)on 11-30-2021 Creatinine [Mass/Vol] 0.75 mg/dL 0.55-1.02 [facility] Work Phone: Comment on above: The validity of the calculated GFR & GFRAA in patients over 70 years has not been determined. Clinical correlation is essential. Serum or plasma low density lipoprotein (LDL) cholesterol measurement (mass/volume)on 11-30-2021 Cholesterol in LDL [Mass/Vol] 101 mg/dL 0-130 [facility] Work Phone: Serum or plasma urea nitroge n measurement (mass/volume)on 11-30-2021 Urea nitrogen [Mass/Vol] 22 mg/dL 7-18 [facility] Work Phone: [phone] Thin prep Papanicolaou smear with manual screeningon 11-30-2021 Thin prep Papanicolaou smear with manual screening 19 U/L 15-37 [facility] Work Phone: [phone] Thin prep Papanicolaou smear with manual screening 5 5-15 [facility] Work Phone: Whole blood hemoglobin A1c/t otal hemoglobin ratio (mass fraction)on 11-30-2021 HbA1c (Bld) [Mass fraction] 5.3 % 3.8-5.6 [facility] Work Phone: Comment on above: Normal < 5.7 % Predi abetic 5.7 - 6.4 % Diabetic >or= 6.5 % Please note range changes. Vital Signs Date Time Vital Sign Value Performing Clinician Facility 01-08-2025 10:22-0400 Body mass index (BMI) [Ratio] 36.64 kg/m2 Theresa Moran APRN.[employer] Work Phone: [facility] 01-08-2025 10:22-0400 Body temperature 98.01 [degF] Theresa Moran APRN.[employer] COMPUTER CONSULTANT Work Phone: [facility] 01-08-2025 10:22-0400 Body weight 106.1 kg Theresa Moran APRN.[employer] COMPUTER CONSULTANT Work Phone: [facility] 01-08-2025 10:22-0400 Diastolic blood pressure 96 mm[Hg] Theresa Moran APRN.DAT[employer] COMPUTER CONSULTANT Work Phone: [facility] 01-08-2025 10:22-0400 Heart rate 102 /min Theresa Moran APRN.[employer] COMPUTER CONSULTANT Work Phone: [facility] 01-08-2025 10:22-0400 Respiratory rate 18 /min Theresa Moran APRN.[employer] COMPUTER CONSULTANT Work Phone: [facility] 01-08-2025 10:22-0400 SaO2% (BldA) [Mass fraction] 98 % Theresa Moran APRN.DAT[employer] COMPUTER CONSULTANT Work Phone: [facility] 01-08-2025 10:22-0400 Systolic blood pressure 147 mm[Hg] Theresa Moran APRN.[employer] COMPUTER CONSULTANT Work Phone: [facility] 12-16-2024 10:54-0500 Body mass index (BMI) [Ratio] 36.46 kg/m2 Marcela Aragon APRN.DAT[employer] COMPUTER CONSULTANT Work Phone: [facility] 12-16-2024 10:54-0500 Body temperature 97.7 [degF] Marcela Aragon APRN.[employer] COMPUTER CONSULTANT Work Phone: [facility] 12-16-2024 10:54-0500 Body weight 105.6 kg Marcela Aragon APRN.DAT[employer] COMPUTER CONSULTANT Work Phone: [facility] 12-16-2024 10:54-0500 Diastolic blood pressure 86 mm[Hg] Marcela Aragon APRN.[employer] COMPUTER CONSULTANT Work Phone: [facility] 12-16-2024 10:54-0500 Heart rate 106 /min Marcela Aragon APRN.[employer] COMPUTER CONSULTANT Work Phone: [facility] 12-16-2024 10:54-0500 Respiratory rate 18 /min Marcela Aragon APRN.DAT[employer]ES COMPUTER CONSULTANT Work Phone: [facility] 12-16-2024 10:54-0500 SaO2% (BldA) [Mass fraction] 95 % Marcela Aragon APRN.DAT[employer]ES COMPUTER CONSULTANT Work Phone: [facility] 12-16-2024 10:54-0500 Systolic blood pressure 128 mm[Hg] Marcela Aragon APRN.[employer] COMPUTER CONSULTANT Work Phone: [facility] 07-20-2023 15:33-0400 Body temperature 96.91 [degF] Willian Tilley MD Work Phone: [facility] 07-20-2023 15:33-0400 Body weight 95.71 kg Willian Tilley MD Work Phone: [facility] 07-20-2023 15:33-0400 Diastolic blood pressure 84 mm[Hg] Willian Tilley MD Work Phone: [facility] 07-20-2023 15:33-0400 Heart rate 112 /min Willian Tilley MD Work Phone: [facility] 07-20-2023 15:33-0400 Respiratory rate 16 /min Willian Tilley MD Work Phone: [facility] 07-20-2023 15:33-0400 SaO2% (BldA) [Mass fraction] 98 % Willian Tilley MD Work Phone: [facility] 07-20-2023 15:33-0400 Systolic blood pressure 128 mm[Hg] Willian Tilley MD Work Phone: [facility] 05-13-2023 19:31-0400 Body temperature 97.81 [degF] Theresa Dean LAST MODEL MAKER.DATABASES COMPUTER CONSULTANT Work Phone: [facility] 05-13-2023 19:31-0400 Body weight 102.51 kg Theresa Dean LAST MODEL MAKER.DATABASES COMPUTER CONSULTANT Work Phone: [facility] 05-13-2023 19:31-0400 Diastolic blood pressure 80 mm[Hg] Theresa Dean LAST MODEL MAKER.DATABASES COMPUTER CONSULTANT Work Phone: [facility] 05-13-2023 19:31-0400 Heart rate 98 /min Theresa Dean LAST MODEL MAKER.DATABASES COMPUTER CONSULTANT Work Phone: [facility] 05-13-2023 19:31-0400 Respiratory rate 16 /min Theresa Dean LAST MODEL MAKER.DATABASES COMPUTER CONSULTANT Work Phone: [facility] 05-13-2023 19:31-0400 SaO2% (BldA) [Mass fraction] 97 % Theresa Dean LAST MODEL MAKER.DATABASES COMPUTER CONSULTANT Work Phone: [facility] 05-13-2023 19:31-0400 Systolic blood pressure 132 mm[Hg] Theresa Dean LAST MODEL MAKER.DATABASES COMPUTER CONSULTANT Work Phone: [facility] 01-10-2022 11:10-0400 Body height 172.[address] Donald Aguilar Work Phone: [facility] Work Phone: 01-10-2022 11:10-0400 Body mass index (BMI) [Ratio] 37.4 kg/m2 Dr. Donald Aguilar Work Phone: [facility] Work Phone: 01-10-2022 11:10-0400 Body weight 111.[address] Donald Aguilar Work Phone: [facility] Work Phone: 01-10-2022 11:10-0400 Diastolic blood pressure 80 mm[Hg] Dr. Donald Aguilar Work Phone: [facility] Work Phone: 01-10-2022 11:10-0400 Systolic blood pressure 138 mm[Hg] Dr. Donald Aguilar Work Phone: [facility] Work Phone: Encounters Encounter Date Encounter Type Care Provider Facility Start: 06-18-[address] [facility] Facility: [facility] Start: 04-22-2025 Encounter for genera l adult medical examination without abnormal findings [facility] Start: 04-08-2025 End: 04-08-[address] Donald Aguilar DO Work Phone: -Laboratory St[facility] Segov[facility] Start: 04-08-2025 End: 04-08-[address] Donald Aguilar DO -Laboratory St[facility] Seg[facility] Start: 04-08-2025 End: 04-08-[address] [facility] Facility:[facility] Start: 01-08-2025 End: 01-08-2025 Subsequent hospital visit by physician [facility] Work Phone: Radiology Comment on above: Acute left-sided low back pain with left-sided sciatica [M54.42] Start: 01-08-2025 End: 01-08-2025 ambulatory [facility] Facility:[facility] Start: 01-08-2025 End: 01-08-2025 Patient encounter procedure Theresa Moran APRN.DATABASES COMPUTER CONSULTANT Work Phone: [facility] Comment on above: Acute left-sided low back pain with left-sided sciatica (Primary Dx) Start: 12-16-2024 End: 12-16-2024 Subsequent hospital visit by physician [facility] Work Phone: Radiology Comment on above: Acute cough [R05.1] Start: 12-16-2024 End: 12-16-2024 ambulatory [facility] Facility:[facility] Start: 12-16-2024 End: 12-16-2024 Patient encounter procedure Marcela Aragon APRN.DATABASES COMPUTER CONSULTANT Work Phone: [facility] Comment on above: Acute cough (Primary Dx) Start: 08-09-2023 End: 08-09-2023 ambulatory [facility] Work Phone: Start: 08-09-2023 End: 08-09-2023 Patient encounter procedure [facility]-Outpatient Breast Imaging Work Phone: Start: 07-26-2023 End: 07-26-2023 Patient encounter procedure [facility]-Radiology, [place] Work Phone: Start: 07-20-2023 End: 07-20-2023 Patient encounter procedure Willian Tilley MD Work Phone: [facility] Comment on above: Acute pain of right shoulder (Primary Dx); DDD (degenerative disc disease), cervical Start: 05-16-2023 End: 05-16-2023 ambulatory [facility] Work Phone: Start: 05-16-2023 End: 05-16-2023 [facility] Work Phone: Start: 05-14-2023 End: 05-14-2023 ambulatory [facility] Work Phone: Start: 05-14-2023 End: 05-14-2023 Patient encounter procedure [facility]-Laboratory, [facility] Work Phone: Start: 05-13-2023 End: 05-13-2023 Patient encounter procedure Theresa oMran APRN.DATABASES COMPUTER CONSULTANT Work Phone: [facility] Comment on above: Rash (Primary Dx) Start: 01-01-2023 End: 01-01-[address] Donald Aguilar Work Phone: [facility] Work Phone: Start: 01-01-2023 End: 01-01-[address] Donald Aguilar Work Phone: [facility]-Laboratory, [place] [facility] Start: 11-23-2022 End: 11-23-[address] Donald Aguilar Work Phone: [facility] Start: 11-21-2022 End: 11-21-[address] Donald Aguilar Work Phone: [facility] Start: 10-02-2022 End: 10-02-[address] [facility] Aguilar [facility] Start: 02-05-2022 End: 02-05-[address] Donald Aguilar Work Phone: [facility]-Outpatient Breast Imaging Start: 02-01-2022 End: 02-01-[address] [facility] Aguilar [facility] Start: 01-10-2022 End: 01-10-[address] Donald Aguilar Work Phone: [facility] Start: 11-30-2021 End: 11-30-[address] Donald Aguilar Work Phone: [facility] [place] Start: 11-27-2021 End: 11-27-[address] Donald Aguilar Work Phone: [facility] Procedures Date Procedure Procedure Detail Performing Clinician Start: 04-08-2025 Vitamin D, 25-hydrox y measurement Dr. Donald Aguilar DO Work Phone: Comment on above: Vitamin D StatusDefi ciency: <20 ng/mL (50nmol/L)Insufficiency: 20-30 ng/mL (50-75 nmol/L)Sufficiency: 30-100 ng/mL (75-250 nmol/L)Toxicity: >100 ng/mL (>250 nmol/L) Start: 01-08-2025 Radex spine lumbosac ral 2/3 views Theresa Moran APRN.CNP Work Phone: Start: 12-16-2024 Radiologic exam ches t 2 views Marcela Aragon APRN.CNP Work Phone: Start: 08-09-2023 Screening mammography Start: 07-26-2023 Plain X-ray of shoulder Start: 07-26-2023 X-ray of cervical spine Start: 02-05-2022 Screening mammography Magalys Aguilar Work Phone: Start: 01-11-2017 Lipid 1996 panel - S willie or Plasma Willian Tilley MD Work Phone: Viral antigen assay Dr. Donald Aguilar Work Phone: Plan of Treatment Date Care Activity Detail Author Start: 06-21-2025 Screening for malign ant neoplasm of colon [facility] Start: 06-14-2024 Covid-19 Vaccine ( season) Covid-19 Vaccine ( season) [facility] Start: 06-14-2024 Influenza vaccination Influenza Vacc ine (#1) [facility] Start: 06-14-2023 Influenza vaccination C [facility] Start: 10-14-2022 DEPRESSION ASSESSMENT DEPRESSION ASS ESSMENT [facility] Start: 01-11-2022 Lipid 1996 panel - S willie or Plasma Lipid Screening [facility] Start: 01-11-2022 Lipid panel Lipid Screening [facility] Start: 01-11-2022 LIPID SCREEN LIPID SCREEN [facility] Start: 10-10-2021 HPV TESTING HPV TESTING [facility] Start: 10-10-2021 PAP TESTING PAP TESTING [facility] Start: 10-10-2021 Screening for malign ant neoplasm of cervix Cervical Cancer Screening [facility] Start: 2020 Pneumococcal Vaccine : 50+ (1 of 1 - PCV) Pneumococcal Vaccine: 50+ (1 of 1 - PCV) [facility] Start: 2020 SHINGRIX VACCINE (1 of 2) SHINGRIX V ACCINE (1 of 2) [facility] Start: 01-12-2020 DIABETES SCREEN DIABETES SCREEN [facility] Start: 01-12-2020 Diabetes Screening Diabetes Screenin g [facility] Start: 2015 COLOGUARD (FIT-DNA) COLOGUARD (FIT-D NA) [facility] Start: 2015 Colonoscopy COLONOSCOPY [facility] Start: 2015 COLORECTAL CANCER SCREENING COLORECTAL CANCER SCREENING [facility] Start: [address] COLONOGRAPHY [facility] Start: 2015 FECAL OCCULT BLOOD FECAL OCCULT BLOO D [facility] Start: 2015 Screening for malign ant neoplasm of colon [facility] Start: 2015 SIGMOIDOSCOPY SIGMOIDOSCOPY [facility] Start: [address] [facility] Start: 2010 Screening for malign ant neoplasm of breast Mammogram Screening [facility] Start: 1989 Hepatitis B Vaccine (1 of 3 - 19+ 3-dose series) Hepatitis B Vaccine (1 of 3 - 19+ 3-dose series) [facility] Start: 1989 Urine microalbumin profile [facility] Start: 1988 Anxiety Screening Anxiety Screening [facility] Start: 1988 Depression Screening Depression Scre ening [facility] Start: 1988 HEPATITIS C SCREENING HEPATITIS C [facility] Start: 1988 Hepatitis C screening Hepatitis C [facility] Start: 1988 HIV SCREENING HIV SCREENING [facility] Start: 1988 HIV screening HIV Screening [facility] Start: 05-26-1971 COVID-19 VACCINE (#1) COVID-19 VACCI NE (#1) [facility] Start: 1970 HEPATITIS B (1 of 3 - 3-dose series) HEPATITIS B (1 of 3 - 3-dose series) [facility] Start: 1970 Hepatitis B Vaccine (1 of 3 - 3-dose series) Hepatitis B Vaccine (1 of 3 - 3-dose series) [facility] Payers Date Payer Category Payer Self-pay [id number] 2025 Unknown [id number] 2022 Miscellaneous or Other [id number] 2022 Unknown [id number] 2022 Unknown [id number] 2022 Unknown [id number] 2014 Unknown [id number] Unknown [id number] Unknown [id number] Unknown [id number] Social History Date Type Detail Facility Start: 01-10-2022 End: 11-21-2022 Tobacco smoking status MDIS Unknown if ever smoked [facility] Start: 1970 Sex Assigned At Female [facility] Start: 05-13-2023 End: 09-03-2023 Tobacco smoking status NHIS Never smoked tobacco [facility] Work Phone: Start: 05-13-2023 Tobacco use and exposure Smokeless tobacco non-user [facility] Work Phone: Start: 05-13-2023 End: 01-08-2025 Alcohol intake Current non-drinker of alcohol (finding) [facility] Start: 09-21-2020 End: 05-13-2023 History of Social function [facility] Start: 09-21-2020 End: 05-13-2023 Tobacco use panel [facility] Work Phone: National Score (1-100), lower number is lower risk Not on file [facility] Start: 1970 Sex Assigned At Not on file [facility] Functional Status Date Assessment Result Facility 09-24-2014 Are you deaf, or do you have serious difficulty hearing No 09/24/2014 9:26 AM Kelly Melgoza LPN No [facility] 09-24-2014 Are you blind, or do you have serious difficulty seeing, even when wearing glasses No 09/24/2014 9:26 AM Kelly Melgoza LPN No [facility] 09-24-2014 Do you have serious difficulty walking or climbing stairs No 09/24/2014 9:26 AM Kelly Melgoza LPN No [facility] 09-24-2014 Do you have difficul ty dressing or bathing No 09/24/2014 9:26 AM Kelly Melgoza LPN No [facility] 09-24-2014 Because of a physica l, mental, or emotional condition, do you have difficulty doing errands alone such as visiting a physician's office or shopping No 09/24/2014 9:26 AM Kelly Melgoza LPN No [facility] Mental Status Date Assessment Result Facility 09-24-2014 Because of a physica l, mental, or emotional condition, do you have serious difficulty concentrating, remembering, or making decisions No 09/24/2014 9:26 AM Kelly Melgoza LPN No [facility] Clinical Notes 05-13-2023 to 01-08-2025 Patient InstructionsDeandre Singh RT(R) - 01/08/2025 10:50 AM EDTheresa Khan APRN.CNP - 01/08/2025 10:42 AM EDTAllison Eubanks RT(R) - 12/16/2024 11:10 AM ESTPatient Instructions Note Date & Type Note Facility 01-08-2025 Instructions Theresa Moran APRN.CNP - 01/08/2025 11:40 AM EDT Report immediately to ER for foot drop, bowel or bladder loss, numbness or tingling of legs/feet or any new or worsening concerns if unable to get into PMD documented in this encounter [facility] 01-08-2025 History of Present illness Narrative Radiology Service Progress Note PATIENT NAME: Sara Olson DATE OF SERVICE: January 08, 2025 TIME: 10:47 AM PATIENT IDENTITY VERIFICATION COMPLETED USING TWO (2) IDENTIFIERS: Name and Date of confirmed by patient verbally. FALL SCREENING: Has the patient had 2 falls in the last year or 1 fall with injury or currently using an Ambulatory Assistive Device (Walker, Cane, Wheelchair, Crutches, etc.)? No PATIENT GENDER DATA: Assigned female at . status: : No status: NO. PATIENT RELEVANT IMPLANT DATA REVIEWED: Not Applicable PATIENT PRESENTS WITH AN IMPLANTABLE OR ATTACHED COSMETICIAN: No RADIOLOGY DEPARTMENT: General X-ray: Exam(s) Completed: Spine X-Ray(s): Lumbar AP/LAT PERIPHERAL IV DATA: Not applicable SIGNED BY: RT Braydon(R) January 08, 2025 10:47 AM documented in this encounter [facility] 01-08-2025 Note HNO ID: [id number] Author: DEANDRE SINGH RT(R) Service: ? Author Type: Technologist Type: Progress Notes Filed: 01/08/2025 10:53 Note Text: Radiology Service Progress Note PATIENT NAME: Sara Olson DATE OF SERVICE: January 08, 2025 TIME: 10:47 AM PATIENT IDENTITY VERIFICATION COMPLETED USING TWO (2) IDENTIFIERS: Name and Date of confirmed by patient verbally. FALL SCREENING: Has the patient had 2 falls in the last year or 1 fall with injury or currently using an Ambulatory Assistive Device (Walker, Cane, Wheelchair, Crutches, etc.)? No PATIENT GENDER DATA: Assigned female at . status: : No status: NO. PATIENT RELEVANT IMPLANT DATA REVIEWED: Not Applicable PATIENT PRESENTS WITH AN IMPLANTABLE OR ATTACHED COSMETICIAN: No RADIOLOGY DEPARTMENT: General X-ray: Exam(s) Completed: Spine X-Ray(s): Lumbar AP/LAT PERIPHERAL IV DATA: Not applicable SIGNED BY: RT Braydon(R) January 08, 2025 10:47 AM [facility] 01-08-2025 Note HNO ID: [id number] Author: THERESA MORAN APRN.DATABASES COMPUTER CONSULTANT Service: ? Author Type: Nurse Practitioner Type: Progress Notes Filed: 01/08/2025 11:41 Note Text: [facility] Subjective Sara Olson is a 54 year old female. Patient presents with: Low Back Pain The history is provided by the patient. No licensed occupational therapist was used. NOE Olson is a 54 year old female who presents today for CC of lower back pain with radiation down left leg. She has had this off and on for months, but states in the past 24 hours it was worse yesterday at work. She has been using lidocaine patches and aleve with short term relief. She denies any known injury or trauma, she has never had any imaging. BP 147/96 Pulse 102 Temp 36.7 ?C (98 ?F) Resp 18 Wt 106.1 kg (233 lb 14.5 oz) LMP 10/01/2017 SpO2 98% BMI 36.64 kg/m? Social History Tobacco Use Smoking status: Never Smokeless tobacco: Never Substance Use Topics Alcohol use: No Drug use: No PAST MEDICAL HISTORY Diagnosis Date Abnormal glandular Papanicolaou smear of cervix Abn. Pap smear (cervix) Asthma DDD (degenerative disc disease), cervical DDD (degenerative disc disease), lumbar Hypertension Miscarriage 2005 I have confirmed and edited as necessary, the [facility] Review of Systems Constitutional: Negative for fatigue and fever. Musculoskeletal: Positive for back pain (shooting down left leg). Negative for myalgias. Skin: Negative for color change and rash. Objective BP 147/96 Pulse 102 Temp 36.7 ?C (98 ?F) Resp 18 Wt 106.1 kg (233 lb 14.5 oz) LMP 10/01/2017 SpO2 98% BMI 36.64 kg/m? Physical Exam Constitutional: General: She is not in acute distress. HENT: Head: Normocephalic and atraumatic. Eyes: Conjunctiva/sclera: Conjunctivae normal. Pupils: Pupils are equal, round, and reactive to light. Cardiovascular: Pulses: Dorsalis pedis pulses are 2+ on the right side and 2+ on the left side. Posterior tibial pulses are 2+ on the right side and 2+ on the left side. Pulmonary: Effort: Pulmonary effort is normal. Musculoskeletal: Cervical back: Normal, normal range of motion and neck supple. Thoracic back: Normal. Lumbar back: Tenderness present. No swelling, edema, deformity, signs of trauma, lacerations, spasms or bony tenderness. Normal range of motion. Negative right straight leg raise test and negative left straight leg raise test. No scoliosis. Comments: She denies any loss or decrease in bowel or bladder function, no numbness or weakness in legs Skin: General: Skin is warm and dry. Neurological: Mental Status: She is alert and oriented to person, place, and time. Sensory: Sensation is intact. {ASSESSMENT/PLAN: 1. Acute left-sided low back pain with left-sided sciatica - ICD9: 724.2, 724.3, ICD10: M54.42 Sciatica - Medrol dose pack - Patient given instructions use of medications as ordered, intermittent rest, and back care exercise program Follow up with PCP as needed - XR LUMBAR LIMITED 2V AP/LAT FINDINGS: A transitional vertebra seen at the lumbosacral junction. No acute fracture noted. There is left-sided curvature/levoscoliosis. Grade 1 L5-S1 anterolisthesis is demonstrated (the iliac crest level is considered to be L4-5). There is L2-3, L3-4 and L4-5 disc space narrowing. There is moderate osteophyte formation. IMPRESSION: Lumbar spine degenerative changes with multilevel disc space narrowing. Interpreted by : LOLY RIVERA MD History and Record Review External record(s) reviewed: prior outpatient record. Findings from review of outpatient records: no lower back xray Diagnosis and treatment plan were discussed and questions were answered to the patient's satisfaction. Pt acknowledged understanding of concepts and follow up plan. Specific signs and symptoms that would indicate the need for higher level of care were discussed in detail warranting prompt ER evaluation. Theresa Moran APRN.[facility] 01-08-2025 History of Present illness Narrative [facility] Subjective Sara Olson is a 54 year old female. Patient presents with: Low Back Pain The history is provided by the patient. No licensed occupational therapist was used. HPI Sara Olson is a 54 year old female who presents today for CC of lower back pain with radiation down left leg. She has had this off and on for months, but states in the past 24 hours it was worse yesterday at work. She has been using lidocaine patches and aleve with short term relief. She denies any known injury or trauma, she has never had any imaging. BP 147/96 Pulse 102 Temp 36.7 C (98 F) Resp 18 Wt 106.1 kg (233 lb 14.5 oz) LMP 10/01/2017 SpO2 98% BMI 36.64 kg/m Social History Tobacco Use Smoking status: Never Smokeless tobacco: Never Substance Use Topics Alcohol use: No Drug use: No PAST MEDICAL HISTORY Diagnosis Date Abnormal glandular Papanicolaou smear of cervix Abn. Pap smear (cervix) Asthma DDD (degenerative disc disease), cervical DDD (degenerative disc disease), lumbar Hypertension Miscarriage 2005 I have confirmed and edited as necessary, the [facility] Review of Systems Constitutional: Negative for fatigue and fever. Musculoskeletal: Positive for back pain (shooting down left leg). Negative for myalgias. Skin: Negative for color change and rash. Objective BP 147/96 Pulse 102 Temp 36.7 C (98 F) Resp 18 Wt 106.1 kg (233 lb 14.5 oz) LMP 10/01/2017 SpO2 98% BMI 36.64 kg/m Physical Exam Constitutional: General: She is not in acute distress. HENT: Head: Normocephalic and atraumatic. Eyes: Conjunctiva/sclera: Conjunctivae normal. Pupils: Pupils are equal, round, and reactive to light. Cardiovascular: Pulses: Dorsalis pedis pulses are 2+ on the right side and 2+ on the left side. Posterior tibial pulses are 2+ on the right side and 2+ on the left side. Pulmonary: Effort: Pulmonary effort is normal. Musculoskeletal: Cervical back: Normal, normal range of motion and neck supple. Thoracic back: Normal. Lumbar back: Tenderness present. No swelling, edema, deformity, signs of trauma, lacerations, spasms or bony tenderness. Normal range of motion. Negative right straight leg raise test and negative left straight leg raise test. No scoliosis. Comments: She denies any loss or decrease in bowel or bladder function, no numbness or weakness in legs Skin: General: Skin is warm and dry. Neurological: Mental Status: She is alert and oriented to person, place, and time. Sensory: Sensation is intact. {ASSESSMENT/PLAN: 1. Acute left-sided low back pain with left-sided sciatica - ICD9: 724.2, 724.3, ICD10: M54.42 Sciatica - Medrol dose pack - Patient given instructions use of medications as ordered, intermittent rest, and back care exercise program Follow up with PCP as needed - XR LUMBAR LIMITED 2V AP/LAT FINDINGS: A transitional vertebra seen at the lumbosacral junction. No acute fracture noted. There is left-sided curvature/levoscoliosis. Grade 1 L5-S1 anterolisthesis is demonstrated (the iliac crest level is considered to be L4-5). There is L2-3, L3-4 and L4-5 disc space narrowing. There is moderate osteophyte formation. IMPRESSION: Lumbar spine degenerative changes with multilevel disc space narrowing. Interpreted by : LOLY RIVERA MD History and Record Review External record(s) reviewed: prior outpatient record. Findings from review of outpatient records: no lower back xray Diagnosis and treatment plan were discussed and questions were answered to the patient's satisfaction. Pt acknowledged understanding of concepts and follow up plan. Specific signs and symptoms that would indicate the need for higher level of care were discussed in detail warranting prompt ER evaluation. Theresa Moran APRN.SURENDRA documented in this encounter [facility] 12-16-2024 History of Present illness Narrative Radiology Service Progress Note PATIENT NAME: Sara Olson DATE OF SERVICE: December 16, 2024 TIME: 11:01 AM PATIENT IDENTITY VERIFICATION COMPLETED USING TWO (2) IDENTIFIERS: Name and Date of confirmed by patient verbally. FALL SCREENING: Has the patient had 2 falls in the last year or 1 fall with injury or currently using an Ambulatory Assistive Device (Walker, Cane, Wheelchair, Crutches, etc.)? No PATIENT GENDER DATA: Assigned female at . status: : No status: NO. PATIENT RELEVANT IMPLANT DATA REVIEWED: Not Applicable PATIENT PRESENTS WITH AN IMPLANTABLE OR ATTACHED COSMETICIAN: No RADIOLOGY DEPARTMENT: General X-ray: Exam(s) Completed: Chest X-Ray PERIPHERAL IV DATA: Not applicable SIGNED BY: RT Purvi(Beltran) December 16, 2024 11:01 AM documented in this encounter [facility] 12-16-2024 Note HNO ID: [id number] Author: ALLISON EUBANKS RT(R) Service: Radiology Author Type: Technologist Type: Progress Notes Filed: 12/16/2024 11:08 Note Text: Radiology Service Progress Note PATIENT NAME: Sara Olson DATE OF SERVICE: December 16, 2024 TIME: 11:01 AM PATIENT IDENTITY VERIFICATION COMPLETED USING TWO (2) IDENTIFIERS: Name and Date of confirmed by patient verbally. FALL SCREENING: Has the patient had 2 falls in the last year or 1 fall with injury or currently using an Ambulatory Assistive Device (Walker, Cane, Wheelchair, Crutches, etc.)? No PATIENT GENDER DATA: Assigned female at . status: : No status: NO. PATIENT RELEVANT IMPLANT DATA REVIEWED: Not Applicable PATIENT PRESENTS WITH AN IMPLANTABLE OR ATTACHED COSMETICIAN: No RADIOLOGY DEPARTMENT: General X-ray: Exam(s) Completed: Chest X-Ray PERIPHERAL IV DATA: Not applicable SIGNED BY: RT Purvi(R) December 16, 2024 11:01 AM [facility] 12-16-2024 Note HNO ID: [id number] Author: MARCELA ARAGON APRN.DATABASES COMPUTER CONSULTANT Service: ? Author Type: Nurse Practitioner Type: Progress Notes Filed: 12/16/2024 11:25 Note Text: CC: Patient presents with: Chest Congestion: cough x 3 weeks HPI: Sara Olson is a 54 year old female who presents to the office with complaint of chest congestion, head congestion, and cough, nonproductive for 3 weeks. Symptoms are staying the same. Associated symptoms includes wheezing. Denies nausea, vomiting , and diarrhea. Treatments tried include nothing so far. with no relief of symptoms. Sick contacts: unknown. History of asthma, frequent episodes of bronchitis, chronic bronchitis, bronchiectasis or COPD: asthma, not on controller medication Smoker: No Seasonal/environmental allergies: yes The ROS is otherwise negative. The patient's pmh, medications, allergies, and past visits are reviewed. PHYSICAL EXAM: BP 128/86 Pulse 106 Temp 36.5 ?C (97.7 ?F) Resp 18 Wt 105.6 kg (232 lb 12.9 oz) LMP 10/01/2017 SpO2 95% BMI 36.46 kg/m? General appearance: alert, cooperative, pleasant, in no acute distress Head: Normocephalic Eyes: EOM's intact, conjunctiva pink and moist, no icterus, sclera white, non-injected Ears: Right ear: External ear/canal- Normal, TM - clear with good landmarks. Left ear: External ear/canal- Normal, TM - clear with good landmarks Oropharynx:moist without lesions, No erythema, exudates or tonsillar hypertrophy. Heart: Negative. RRR without obvious murmur, gallop, or rubs. No ectopy. Lungs: wheezing diffusely PAST MEDICAL HISTORY Diagnosis Date Abnormal glandular Papanicolaou smear of cervix Abn. Pap smear (cervix) Asthma DDD (degenerative disc disease), cervical DDD (degenerative disc disease), lumbar Hypertension Miscarriage 2006 PAST SURGICAL HISTORY Procedure Laterality Date CONIZATION CERVIX W/WO DANDC RPR ELTRD EXC 2011 LEEP-Cervix DILATION AND CURETTAGE DXAND/THER NONOBSTETRIC 05/2006 Following Miscarriage EXCISION GANGLION WRIST DORSAL/VOLAR PRIMARY Left INJ WO/CATH ANES/STER CERV/THORAC 2014 Epidural steroid injection, cervical or thoracic PAST SURGICAL HISTORY OF 04/2015 Fatty Cyst Removed From Back Of Neck ALLERGIES Sulfa (Sulfonamide Antibiotics) MEDICATIONS verapamil SR (CALAN SR, ISOPTIN SR) 120 mg CR tablet Take 120 mg by mouth daily at bedtime. ALBUTEROL SULFATE (VENTOLIN HFA INHALATION) Inhale as instructed. OMEPRAZOLE ORAL Take by mouth. Phentermine HCl 37.5 mg tablet TAKE 1 TABLET BY MOUTH ONCE DAILY IN THE MORNING (Patient not taking: Reported on 12/16/2024) ADVAIR HFA 115-21 mcg/actuation inhaler Inhale 1 Puff as instructed twice daily. (Patient not taking: Reported on 12/16/2024) Levocetirizine (XYZAL) 5 mg tablet Take 5 mg by mouth. (Patient not taking: Reported on 12/16/2024) FAMILY HISTORY Problem Relation Age of Onset Asthma Mother Hypertension Mother Diabetes Father other (Lung Cancer) Maternal Grandmother Ovarian cancer Daughter 20 Heart Paternal Uncle [place] Heart Paternal Uncle [place] Prostate Cancer Maternal Uncle Social History Tobacco Use Smoking status: Never Smokeless tobacco: Never Substance Use Topics Alcohol use: No Drug use: No ASSESSMENT/PLAN: 1. Acute cough - ICD9: 786.2, ICD10: R05.1 - XR CHEST 2V FRONTAL/LAT * * * * Physician Interpretation * * * * EXAMINATION: CHEST RADIOGRAPH (2 VIEW FRONTAL AND LATERAL) CLINICAL HISTORY: Acute cough MQ: XC2_6 EXAM DATE/TIME: 12/16/2024 11:08 AM COMPARISON: No relevant prior studies available. RESULT: Lines, tubes, and devices: None. Lungs and pleura: No consolidation. No lung mass. No pleural effusion. No pneumothorax. Cardiomediastinal silhouette: Normal cardiomediastinal silhouette. Bones and soft tissues: Unremarkable. IMPRESSION IMPRESSION: No acute radiographic abnormality. Wafer Abrading Machine Tender: PAOLA Transcribe Date/Time: Dec 16 2024 11:15A Dictated by : SEDA LIN MD - AIRSUPRA 90 MCG-80 MCG/ACTUATION HFA AEROSOL INHALER Prescription instructions reviewed with patient as applicable. Potential red flag symptoms discussed with the patient. Reviewed appropriate action plan to take if red flag symptoms occur. Patient agreeable to treatment plan. Marcela Aragon APRN.[facility] 12-16-2024 History of Present illness Narrative CC: Patient presents with: Chest Congestion: cough x 3 weeks HPI: Sara Olson is a 54 year old female who presents to the office with complaint of chest congestion, head congestion, and cough, nonproductive for 3 weeks. Symptoms are staying the same. Associated symptoms includes wheezing. Denies nausea, vomiting , and diarrhea. Treatments tried include nothing so far. with no relief of symptoms. Sick contacts: unknown. History of asthma, frequent episodes of bronchitis, chronic bronchitis, bronchiectasis or COPD: asthma, not on controller medication Smoker: No Seasonal/environmental allergies: yes The ROS is otherwise negative. The patient's pmh, medications, allergies, and past visits are reviewed. PHYSICAL EXAM: BP 128/86 Pulse 106 Temp 36.5 C (97.7 F) Resp 18 Wt 105.6 kg (232 lb 12.9 oz) LMP 10/01/2017 SpO2 95% BMI 36.46 kg/m General appearance: alert, cooperative, pleasant, in no acute distress Head: Normocephalic Eyes: EOM's intact, conjunctiva pink and moist, no icterus, sclera white, non-injected Ears: Right ear: External ear/canal- Normal, TM - clear with good landmarks. Left ear: External ear/canal- Normal, TM - clear with good landmarks Oropharynx:moist without lesions, No erythema, exudates or tonsillar hypertrophy. Heart: Negative. RRR without obvious murmur, gallop, or rubs. No ectopy. Lungs: wheezing diffusely PAST MEDICAL HISTORY Diagnosis Date Abnormal glandular Papanicolaou smear of cervix Abn. Pap smear (cervix) Asthma DDD (degenerative disc disease), cervical DDD (degenerative disc disease), lumbar Hypertension Miscarriage 2005 PAST SURGICAL HISTORY Procedure Laterality Date CONIZATION CERVIX W/WO D&C RPR ELTRD EXC 2011 LEEP-Cervix DILATION & CURETTAGE DX&/THER NONOBSTETRIC 05/2006 Following Miscarriage EXCISION GANGLION WRIST DORSAL/VOLAR PRIMARY Left INJ WO/CATH ANES/STER CERV/THORAC 2014 Epidural steroid injection, cervical or thoracic PAST SURGICAL HISTORY OF 04/2015 Fatty Cyst Removed From Back Of Neck ALLERGIES Sulfa (Sulfonamide Antibiotics) MEDICATIONS verapamil SR (CALAN SR, ISOPTIN SR) 120 mg CR tablet Take 120 mg by mouth daily at bedtime. ALBUTEROL SULFATE (VENTOLIN HFA INHALATION) Inhale as instructed. OMEPRAZOLE ORAL Take by mouth. Phentermine HCl 37.5 mg tablet TAKE 1 TABLET BY MOUTH ONCE DAILY IN THE MORNING (Patient not taking: Reported on 12/16/2024) ADVAIR HFA 115-21 mcg/actuation inhaler Inhale 1 Puff as instructed twice daily. (Patient not taking: Reported on 12/16/2024) Levocetirizine (XYZAL) 5 mg tablet Take 5 mg by mouth. (Patient not taking: Reported on 12/16/2024) FAMILY HISTORY Problem Relation Age of Onset Asthma Mother Hypertension Mother Diabetes Father other (Lung Cancer) Maternal Grandmother Ovarian cancer Daughter 20 Heart Paternal Uncle [place] Heart Paternal Uncle [place] Prostate Cancer Maternal Uncle Social History Tobacco Use Smoking status: Never Smokeless tobacco: Never Substance Use Topics Alcohol use: No Drug use: No ASSESSMENT/PLAN: 1. Acute cough - ICD9: 786.2, ICD10: R05.1 - XR CHEST 2V FRONTAL/LAT * * * * Physician Interpretation * * * * EXAMINATION: CHEST RADIOGRAPH (2 VIEW FRONTAL & LATERAL) CLINICAL HISTORY: Acute cough MQ: XC2_6 EXAM DATE/TIME: 12/16/2024 11:08 AM COMPARISON: No relevant prior studies available. RESULT: Lines, tubes, and devices: None. Lungs and pleura: No consolidation. No lung mass. No pleural effusion. No pneumothorax. Cardiomediastinal silhouette: Normal cardiomediastinal silhouette. Bones and soft tissues: Unremarkable. IMPRESSION IMPRESSION: No acute radiographic abnormality. Wafer Abrading Machine Tender: PAOLA Transcribe Date/Time: Dec 16 2024 11:15A Dictated by : SEDA LIN MD - AIRSUPRA 90 MCG-80 MCG/ACTUATION HFA AEROSOL INHALER Prescription instructions reviewed with patient as applicable. Potential red flag symptoms discussed with the patient. Reviewed appropriate action plan to take if red flag symptoms occur. Patient agreeable to treatment plan. Marcela Aragon APRN.DATABASES COMPUTER CONSULTANT documented in this encounter [facility] 07-20-2023 History of Present illness Narrative Patient presents with: Pain (Shoulder Pain): right upper arm into shoulder and neck x 4 days HPI: Right shoulder pain: Duration: 4 days Location: right shoulder Character: aching and sharp Radiation: up to the right neck, down the right arm Aggravating: moving shoulder or neck Relieving: sleep Pain relievers: Motrin, Tylenol, and lidocaine patch did not work Associated: numbness back/outside of the arm to the medial fingers, had flu shot 07/09/23, DDD Hx, works as a SERVER ENGINEER. Pertinent negatives: Denies fever, injury, rash Has had neck and shoulder injections in the past. MEDICATIONS: Phentermine HCl 37.5 mg tablet TAKE 1 TABLET BY MOUTH ONCE DAILY IN THE MORNING ADVAIR HFA 115-21 mcg/actuation inhaler Inhale 1 Puff as instructed twice daily. verapamil SR (CALAN SR, ISOPTIN SR) 120 mg CR tablet Take 120 mg by mouth daily at bedtime. ALBUTEROL SULFATE (VENTOLIN HFA INHALATION) Inhale as instructed. OMEPRAZOLE ORAL Take by mouth. Levocetirizine (XYZAL) 5 mg tablet Take 5 mg by mouth. ALLERGIES: ALLERGIES Allergen Reactions Sulfa (Sulfonamide * Hives VITALS: BP 128/84 Pulse 112 Temp 36.1 C (96.9 F) Resp 16 Wt 95.7 kg (211 lb) LMP 10/01/2017 SpO2 98% BMI 33.05 kg/m PHYSICAL EXAM: GEN: pleasant, no acute distress, alert HEENT: PERRL, EOMI, MMM NECK: supple, no lymphadenopathy, no thyromegaly. Full ROM. Tender right trapezius. No midline tenderness. HEART: regular rate, regular rhythm, no murmurs LUNGS: clear to auscultation, no wheezes or crackles, no increased WOB SHOULDER: right. No deformity or swelling. Palpation of clavicle non-tender, AC joint non-tender, glenohumeral joint non tender. ROM: pain with abduction to 90 degrees. Impingement test: Positive Right. Cross arm test: Positive right. EXT: no clubbing, no cyanosis, no edema, no rash. Normal strength in hand apprentice instrument technician, pincer grasp, and finger abduction. ASSESSMENT/PLAN: 1. Acute pain of right shoulder - ICD9: 719.41, ICD10: M25.511 (primary diagnosis) 2. DDD (degenerative disc disease), cervical - ICD9: 722.4, ICD10: M50.30 Exam and history consistent with cervical radicular pain and musculoskeletal glenohumeral/AC joint pain. - PREDNISONE 10 MG TABLET taper. Reports her A1c has been good. Follow up with PCP or ortho if pain persists. Willian Tilley MD documented in this encounter [facility] 05-13-2023 Instructions Theresa Moran APRN.SURENDRA - 05/13/2023 7:39 PM EDT Benadryl 25 mg at bedtime Pepcid 20 mg twice a day until rash is gone Stop cholesterol medication Follow up with Primary Care Doctor documented in this encounter [facility] 05-13-2023 History of Present illness Narrative Images from the original note were not included. Subjective The history is provided by the patient. No licensed occupational therapist was used. NOE Olson is a 52 year old female who presents today for CC of rash on chest that started in past couple days that it itchy. She recently started pravachol, and as she has taken it noted more itching. She denies any other systemic symptoms. No known exposure to environmental plants or toxins BP 132/80 Pulse 98 Temp 36.6 C (97.8 F) Resp 16 Wt 102.5 kg (226 lb) LMP 10/01/2017 SpO2 97% BMI 35.40 kg/m Social History Tobacco Use Smoking status: Never Smokeless tobacco: Never Substance Use Topics Alcohol use: No Drug use: No PAST MEDICAL HISTORY Diagnosis Date Abnormal glandular Papanicolaou smear of cervix Abn. Pap smear (cervix) Asthma DDD (degenerative disc disease), cervical DDD (degenerative disc disease), lumbar Hypertension Miscarriage 2005 I have confirmed and edited as necessary, the [facility] Review of Systems Constitutional: Negative for chills and fever. Musculoskeletal: Negative for joint pain and myalgias. Skin: Positive for itching and rash. All other systems reviewed and are negative. Objective Physical Exam Vitals and nursing note reviewed. Pulmonary: Effort: Pulmonary effort is normal. Skin: General: Skin is warm and dry. Comments: puritic circumscribed raised erythematous plaques with central clearing 2-3 mm diameter on marked area Neurological: Mental Status: She is alert and oriented to person, place, and time. Psychiatric: Mood and Affect: Affect normal. ASSESSMENT/PLAN: 1. Rash - ICD9: 782.1, ICD10: R21 Appears to be urticarial, possible reaction to Pravachol Stop medication Continue xysol, benadryl at bedtime Famotidine twice a day Follow up with PCP tomorrow Diagnosis and treatment plan were discussed and questions were answered to the patient's satisfaction. Pt acknowledged understanding of concepts and follow up plan. Specific signs and symptoms that would indicate the need for higher level of care were discussed in detail warranting prompt ER evaluation. Theresa Moran APRN.CNP documented in this encounter [facility] Evaluation note Diagnosis Onset Date Anxiety as acute reaction to gross stress acute Irregular menses acute [facility] Work Phone: Evaluation noteNo assessment information available [facility] Work Phone: Evaluation note* Diagnosis Rash- Primary Rash and other nonspecific skin eruption [facility] Diagnosis Acute pain of right shoulder- Primary DDD (degenerative disc disease), cervical Degeneration of cervical intervertebral disc [facility] Diagnosis Acute cough- Primary Acute cough [facility] Diagnosis Acute cough [facility]* Diagnosis Acute left-sided low back pain with left-sided sciatica- Primary Acute left-sided low back pain with left-sided sciatica [facility]* Diagnosis Acute left-sided low back pain with left-sided sciatica [facility] (narrative)No reason for referral information availableWDoctors [facility] Work Phone: Reason for visit Narrative* Consult, Test, Treat (Routine) - Denied Specialty Diagnoses / Procedures Referred By Contac t Referred To Contact Radiology / [facility] Diagnoses Room 3 Procedures XR CHEST Marcela Aragon, LAST MODEL MAKER.DATABASES COMPUTER CONSULTANT [address] [place] [address] Phone: tel: fax: Radiology [address] [place] [address] Phone: tel: fax: Referral ID Status Reason Start Date Expiration Date Visits Re quested Visits Authorized [id number] Denied 12/16/2024 03/16/2025 1 0 [facility] for visit Narrative* Diagnostic Procedure Only (Urgent) - Denied Specialty Diagnoses / Procedures Referred By Contac t Referred To Contact XR IMAGING Diagnoses Acute left-sided low back pain with left-sided sciatica Procedures XR LUMBAR LIMITED 2V AP/LAT RADEX SPINE LUMBOSACRAL 2/3 VIEWS Theresa Moran, LAST MODEL MAKER.DATABASES COMPUTER CONSULTANT [address] [place] [address] Phone: tel: fax: [place] [phone] Referral ID Status Reason Start Date Expiration Date V isits Requested Visits Authorized [id number] Denied Auto-Generate d Referral 01/08/2025 02/07/2026 [address] 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 Reason for Visit Anxiety as acute anoop ction to gross stress Irregular menses Chief Complaint TB TEST TB READ Chief Complaint NECK AND SHOULDER PA IN SCREENING Family History No Family History Records Found Relationship Condition Age at Onset Recorded Date/T christen mother Asthma Unknown Hypertension Unknown father Diabetes mellitus Unknown Advance Directives No Advanced Directives Records Found Advance Directive Response Recorded Date/ Time Advance Directives No October 22, 2017 8:35pm Living Will No October 22 8 8:35pm Power of Per Diem Registered Nurse No October 22 2 018 8:35pm Advance Directive Response Recorded Date/ Time Advance Directives No October 22, 2017 8:35pm Summary Purpose Additional Source Comments Goals (unrecognized section and content) Goals may be documented in a n alternate sectionGoals may be documented in an alternate sectionGoals may be documented in an alternate sectionGoals may be documented in an alternate sectionGoals may be documented in an alternate sectionGoals may be documented in an alternate section Care Teams (unrecognized sec tion and content) Team Status: Active Member Role Status Dates Dr. Donald Aguilar DO Family Provider Active Dr. Donald Aguilar DO Primary Care Provider Active Team Status: Inactive Member Role Status Dates Dr. Donald Aguilar DO Primary Care Provider, Referrin g Provider Active Jadon DAVIS, PA Attending Provider Active Team Status: Inactive Member Role Status Dates Dr. Donald Aguilar DO Primary Care Provider, Referrin g Provider Active Armand DAVIS, PA Attending Provider Active Team Status: Inactive Member Role Status Dates Dr. Donald Aguilar DO Primary Care Provider, Attendin g Provider Active Team Status: Inactive Member Role Status Dates Dr. Donald Aguilar DO Primary Care Prov ider, Attending Provider, Referring Provider Active Property Maintenance Technician Relationship Specialty Start Date End Date Donald Aguilar DO [address] [place], [place] [id number] PCP - General Family Medicine 09/24/16 Team Status: Active Member Role Status Dates Dr. Donald Aguilar DO Primary Care Prov ider, Attending Provider, Referring Provider Active Property Maintenance Technician Relationship Specialty Start Date End Date Donald Aguilar DO [address] [place], [place] [address] PCP - General Family Medicine 09/24/16 Team Status: Inactive Member Role Status Dates Dr. Donald Aguilar DO Primary Care Provider Active Chelsea Membreno , PLAYER DEVELOPMENT EXECUTIVE-C Attending Provider, Referring Prov ider Active Property Maintenance Technician Relationship Specialty Start Date End Date Donald Aguilar [address] [place] [address] PCP - General Family Medicine 09/24/16 Property Maintenance Technician Relationship Specialty Start Date End Date LaurenDonald bryant [address] [place] [address] PCP - General Family Medicine 09/24/16 Property Maintenance Technician Relationship Specialty Start Date End Date Donald Aguilar WestDO [address] [place] [address] PCP - General Family Medicine 09/24/16 Property Maintenance Technician Relationship Specialty Start Date End Date LaurenDonald [address] [place] [address] PCP - General Family Medicine 09/24/16 Team Status: Active Member Role/Relationship Status Dates Dr. Donald Aguilar DO Primary Care Provider Active Team Status: Inactive Member Role/Relationship Status Dates Dr. Donald Aguilar DO Primary Care Provider Active Start: April 08, 2025 End: April 08, 2025 Dr. Donald Aguilar DO Attending Provider Active Start: April 08, 2025 End: April 08, 2025 Source Comments (unrecognize d section and content) In the event this informatio n is protected by the Federal Confidentiality of Alcohol and Drug Abuse Patient Records regulations: The Federal rules restrict any use of the information to criminally investigate or prosecute any alcohol or drug abuse patient.[facility] Center[facility] the event this information is protected by the Federal Confidentiality of Alcohol and Drug Abuse Patient Records regulations: The Federal rules restrict any use of the information to criminally investigate or prosecute any alcohol or drug abuse patient.[facility] Center[facility] the event this information is protected by the Federal Confidentiality of Alcohol and Drug Abuse Patient Records regulations: The Federal rules restrict any use of the information to criminally investigate or prosecute any alcohol or drug abuse patient.[facility] Center[facility] the event this information is protected by the Federal Confidentiality of Alcohol and Drug Abuse Patient Records regulations: The Federal rules restrict any use of the information to criminally investigate or prosecute any alcohol or drug abuse patient.[facility] CenterIn the event this information is protected by the Federal Confidentiality of Alcohol and Drug Abuse Patient Records regulations: The Federal rules restrict any use of the information to criminally investigate or prosecute any alcohol or drug abuse patient.[facility] CenterIn the event this information is protected by the Federal Confidentiality of Alcohol and Drug Abuse Patient Records regulations: The Federal rules restrict any use of the information to criminally investigate or prosecute any alcohol or drug abuse patient.[facility] Reason for Visit (unrecogniz ed section and content) Reason Comments Derm Problem rash x 2 weeks on an d off Reason Comments Pain (Shoulder Pain) right upper arm int o shoulder and neck x 4 days Reason Comments Chest Congestion cough x 3 weeks Specialty Diagnoses / Procedures Referred By Pranav weathers Referred To Contact Family Medicine / [facility] Diagnoses cough and congestion x 3 weeks Procedures EST SAME DAY [facility] [address] [place] [address] Phone: tel: Marcela Aragon APRN.DATABASES COMPUTER CONSULTANT [address] [place] [address] Phone: tel: fax: Referral ID Status Reason Start Date Expiration Date Visits Re quested Visits Authorized [id number] Denied 12/16/2024 03/16/2025 1 0 Reason Comments Low Back Pain INFORMATION SOURCE (unrecogn ized section and content) DATE CREATED AUTHOR 01/09/2025 [facility] DATE CREATED AUTHOR AUTHOR'S ORGANJENNIFER ATION 06/13/2025 [facility] FOR RECORDS PERTAINING TO PATIENTS WHO ARE OR HAVE BEEN ENROLLED IN A CHEMICAL DEPENDENCY/SUBSTANCEABUSE PROGRAM, SOME INFORMATION MAY BE OMITTED. This clinical summary was aggregated from multiple sources. Caution should be exercised in using it in the provision of clinical care. This summary normalizes information from multiple sources, and as a consequence, information in this document may materially change the coding, format and clinical context of patient data. In addition, data may be omitted in some cases. CLINICAL DECISIONS SHOULD BE BASED ON THE PRIMARY CLINICAL RECORDS. [facility]. provides no warranty or guarantee of the accuracy or completeness of information in this document.
== END | disposition home or self-care (01) ==
LOC: OPBI 15:53
PROVIDERS: PCP Family Medicine; Referring Provider Family Medicine; Visit Provider Family Medicine
DX: Z12.31 Encounter for screening mammogram for malignant neoplasm of breast (principal)
CPT/HCPCS: 77063; 77067